=== PATIENT | male | born 1970 | race Caucasian/White ===

== ENCOUNTER 2020-09-23 14:57 | Outpatient (CLI) | payer BC, SELFPAY ==
[2020-09-23 15:15] LABS: Hemoglobin 15.4 g/dL (14.0-18.0); Mean Corpuscular Hemoglobin 31.4 pg (26-34); Mean Corpuscular Volume 89.6 fl (80-100); Mean Platelet Volume 9.7 fl (7.4-10.4); Platelet Count Result 183 k/mm3 (150-375); Red Blood Count 4.91 M/mm3 (4.6-6.20); Red Cell Distribution Width 13.1 % (11.5-14.5); White Blood Count 7.1 K/mm3 (4.5-10.0)
[2020-09-23 15:35] LABS: Alanine Aminotransferase 27 U/L (4-50); Albumin Level 4.1 g/dL (3.5-5.1); Alkaline Phosphatase 74 U/L (38-126); Anion Gap 6 mmol/L (8-16); Aspartate Amino Transferase 34 U/L (17-59); Bilirubin,Total 0.5 mg/dL (0.2-1.3); Blood Urea Nitrogen 8 mg/dL (9-20); Calcium 9.1 mg/dL (8.4-10.2); Carbon Dioxide 26 mmol/L (22-30); Chloride 108 mmol/L (98-107); Cholesterol 177 mg/dL (0-200); Estimated Glomerular Filt Rate > 60; Glucose 94 mg/dL (75-110); HDL Direct 47 mg/dL; Potassium 4.1 mmol/L (3.4-5.0); Sodium 140 mmol/L (137-145); Triglycerides 139 mg/dL (<150)
[2020-09-23 15:46] LABS: LDL Cholesterol Direct 93 mg/dL
[2020-09-23 15:59] LABS: Vitamin D 25 Hydroxy 50.7 ng/mL
[2020-09-23 17:22] LABS: Prostate Specific Antigen 0.7 ng/mL (< OR = 4.0)
[2020-09-27 15:04] LABS: Testosterone Free 69.2 pg/mL (35.0-155.0); Testosterone Total 505 ng/dL (250-1100)
== END 2020-09-23 14:58 | disposition home or self-care (01) ==
PROVIDERS: PCP Family Medicine; Visit Provider Nurse Practitioner Family
DX: I10 Essential (primary) hypertension (principal); Z13.1 Encounter for screening for diabetes mellitus; Z68.33 Body mass index [BMI] 33.0-33.9, adult; Z13.220 Encounter for screening for lipoid disorders; Z12.5 Encounter for screening for malignant neoplasm of prostate; R53.83 Other fatigue; R68.82 Decreased libido; Z13.29 Encounter for screening for other suspected endocrine disorder; E55.9 Vitamin D deficiency, unspecified
CPT/HCPCS: 36415; 80053; 80061; 82306; 84153; 84402; 84403; 84443; 85027; G0103

== ENCOUNTER 2020-11-05 10:28 | Outpatient (CLI) | payer BC, SELFPAY ==
--- NOTE | 2020-11-05 11:30 | NEURO_ITS ---
Impression: # Complains of numbness of hands. # Evolving Carpal Tunnel Syndrome, right more than left. # No ulnar neuropathy. # Normal needle/EMG exam. Nerve Conduction Studies Anti Sensory Summary Table Stim Site NR Peak (ms) P-T Amp (?V) Site1 Site2 Delta-P (ms) Dist (cm) Myron (m/s) Left Median Anti Sensory (2-3nd Digit) Wrist 3.1 25.2 Wrist 2-3nd Digit 3.1 14.0 45 Wrist 3.6 31.9 Wrist 2-3nd Digit 3.1 14.0 45 Right Median Anti Sensory (2-3nd Digit) Wrist 3.3 35.0 Wrist 2-3nd Digit 3.3 14.0 42 Wrist 3.7 27.0 Wrist 2-3nd Digit 3.3 14.0 42 Left Radial Anti Sensory (Base 1st Digit) Wrist 1.8 19.7 Wrist Base 1st Digit 1.8 0.0 Right Radial Anti Sensory (Base 1st Digit) Wrist 2.7 12.7 Wrist Base 1st Digit 2.7 0.0 Left Ulnar Anti Sensory (5th Digit) Wrist 2.7 31.5 Wrist 5th Digit 2.7 14.0 52 Right Ulnar Anti Sensory (5th Digit) Wrist 2.6 41.8 Wrist 5th Digit 2.6 14.0 54 Motor Summary Table Stim Site NR Onset (ms) O-P Amp (mV) Site1 Site2 Delta-0 (ms) Dist (cm) Myron (m/s) Left Median Motor (Abd Poll Brev) Wrist 3.4 8.1 Elbow Wrist 5.5 32.0 58 Elbow 8.9 6.0 Right Median Motor (Abd Poll Brev) Wrist 3.8 3.5 Elbow Wrist 5.1 30.0 59 Elbow 8.9 4.0 Left Ulnar Motor (Abd Dig Minimi) Wrist 2.7 7.1 A Elbow Wrist 5.3 31.0 58 A Elbow 8.0 4.8 Right Ulnar Motor (Abd Dig Minimi) Wrist 2.7 7.0 A Elbow Wrist 5.4 32.0 59 A Elbow 8.1 4.4 F Wave Studies NR F-Lat (ms) L-R F-Lat (ms) Left Median (Mrkrs) (Abd Poll Brev) 28.91 0.55 Right Median (Mrkrs) (Abd Poll Brev) 29.46 0.55 Left Ulnar (Mrkrs) (Abd Dig Min) 29.24 0.49 Right Ulnar (Mrkrs) (Abd Dig Min) 28.76 0.49 EMG Side Muscle Nerve Root Ins Act Fibs Amp Dur Recrt Comment Right 1stDorInt Ulnar C8-T1 Nml Nml Nml Nml Nml Right Ext Indicis Radial (Post Int) C7-8 Nml Nml Nml Nml Nml Right Ext Digitorum Radial (Post Int) C7-8 Nml Nml Nml Nml Nml Right BrachioRad Radial C5-6 Nml Nml Nml Nml Nml Right PronatorTeres Median C6-7 Nml Nml Nml Nml Nml Right Abd Poll Brev Median C8-T1 Nml Nml Nml Nml Nml Left 1stDorInt Ulnar C8-T1 Nml Nml Nml Nml Nml Left Ext Indicis Radial (Post Int) C7-8 Nml Nml Nml Nml Nml Left Ext Digitorum Radial (Post Int) C7-8 Nml Nml Nml Nml Nml Left BrachioRad Radial C5-6 Nml Nml Nml Nml Nml Left PronatorTeres Median C6-7 Nml Nml Nml Nml Nml Left Abd Poll Brev Median C8-T1 Nml Nml Nml Nml Nml Right ABD Dig Min Ulnar C8-T1 Nml Nml Nml Nml Nml Left ABD Dig Min Ulnar C8-T1 Nml Nml Nml Nml Nml MTDD
== END 2020-11-05 10:29 | disposition home or self-care (01) ==
LOC: ANHNEURO 10:30
PROVIDERS: PCP Family Medicine; Visit Provider Nurse Practitioner Family
DX: R20.2 Paresthesia of skin (principal); G56.03 Carpal tunnel syndrome, bilateral upper limbs
CPT/HCPCS: 95886; 95911

== ENCOUNTER → 2020-11-21 03:20 | Outpatient (CLI) | payer BC, SELFPAY ==
[2020-11-21 20:11] LABS: SARS-CoV-2 RNA PCR Negative
== END ==
PROVIDERS: PCP Family Medicine; Visit Provider Internal Medicine Gastroenterology
DX: Z01.812 Encounter for preprocedural laboratory examination (principal); Z20.822 Contact with and (suspected) exposure to COVID-19
CPT/HCPCS: C9803; U0003; U0005

== ENCOUNTER 2020-11-24 02:41 | Day surgery (SDC) | payer BC, SELFPAY ==
[2020-11-17 15:45] VITALS: BMI 32.5
[2020-11-24 06:39] VITALS: BP 132/87; PULSE 77; RESP 18; TEMP 36.2; O2SAT 98; BMI 33.5
[2020-11-24] MEDS: LACTATED RINGERS 1,000 ML 150 ML IV CONT (06:50)
--- NOTE | 2020-11-24 07:13 | WPDANESEPPF ---
Anes - Initial Pre Proc Eval Procedure: Operation Date: 11/24/20 08:00 Proposed Procedures p Screening Colonoscopy - Ousmane Dykes MD Date/Time: 11/24/20 07:13 Surgeon: Ousmane Dykes MD Pre Op Diagnosis: neoplasm screening Patient Data Age: 50 Gender: M Height: 1.83 m Weight: 112 kg Last Vital Signs Temp 36.2 C L 11/24/20 06:39 Pulse 77 11/24/20 06:39 Resp 18 11/24/20 06:39 BP 132/87 11/24/20 06:39 Pulse Ox 98 11/24/20 06:39 Allergies Allergy/AdvReac Type Severity Reaction Status Date / Time No Known Allergies Allergy Verified 11/24/20 06:38 Home Medications Medication Instructions Recorded Confirmed Type epinephrine 0.3 mg/0.3 mL 0.3 mg IM ONCE #2 each 03/20/19 11/17/20 Rx injection, auto-injector benazepril 10 mg tablet 10 mg PO DAILY #90 tablet 09/03/20 11/17/20 Rx triamcinolone acetonide 1 applic TOPICAL BID PRN 11/17/20 11/17/20 History Patient hx anesthesia problems: none Family hx anesthesia problems: none PMFSH Past Medical History Medical History (Updated 11/24/20 @ 07:15 by Stephen Carter MD) BMI 33.0-33.9,adult Hypertension DEIDRA on CPAP Psoriasis Family History Family History Father Family history of heart disease in male family member before age 55 Social History Social History Smoking status: Never smoker Alcohol intake: never Living arrangements: with family Spiritual care concerns: No Anes - Eval Final PreProcedure Day of Procedure 11/24/20 07:13 Patient weight: obese Heart: regular rate and rhythm Lungs: clear to auscultation and normal air movement Airway: Mallampati scale class II Neurological: alert and oriented Last oral intake: >/= 8 hours ASA classification: III Emergent: no Anesthetic plan: proceed Anesthesia type and monitoring: general GIVS Informed Consent: The patient's anesthetic plan and its attendant risks and benefits were discussed with the patient/family/POA. Questions were solicited and answers provided to the satisfaction of the patient/family/POA.
--- NOTE | 2020-11-24 08:00 | PM.HPGS ---
History of Present Illness History of Present Illness Consent: Risks, benefits, and alternatives have been discussed and questions answered. Patient agrees to proceed with procedure. Chief complaint: neoplasm screening Narrative: Timmy Rivera is a 50 year old male here for first screening colonoscopy Review of Systems Constitutional: Constitutional: Denies headache(s) and Denies weakness Eyes: Eyes: Denies blurry vision ENT: Reports Normal hearing present, Denies headache(s) and Denies neck pain Cardiovascular: Cardiovascular: Denies chest pain and Denies dyspnea Respiratory: Respiratory: Denies dyspnea Gastrointestinal: Gastrointestinal: Reports no additional gastrointestinal complaints Genitourinary: Genitourinary: Denies dysuria Musculoskeletal: Musculoskeletal: Denies neck pain Integumentary/Breasts: Skin/Breast: Denies dry skin Neurologic: Reports Normal hearing present, Denies headache(s) and Denies weakness Psychiatric: Psychiatric: Denies anxiety Endocrine: Endocrine: Denies change in body appearance Hematologic/Lymphatic: Hematologic/Lymphatic: Denies easy bleeding Allergic/Immunologic: Allergic/Immunologic: Denies urticaria [facility] Past Medical History Medical History (Updated 11/24/20 @ 07:15 by Stephen Carter MD) BMI 33.0-33.9,adult Hypertension DEIDRA on CPAP Psoriasis Family History Family History Father Family history of heart disease in male family member before age 55 Social History Social History Smoking status: Never smoker Alcohol intake: never Living arrangements: with family Spiritual care concerns: No Meds Home Medications and Allergies Home Medications Medication Instructions Recorded Confirmed Type epinephrine 0.3 mg/0.3 mL 0.3 mg IM ONCE #2 each 03/20/19 11/17/20 Rx injection, auto-injector benazepril 10 mg tablet 10 mg PO DAILY #90 tablet 09/03/20 11/17/20 Rx triamcinolone acetonide 1 applic TOPICAL BID PRN 11/17/20 11/17/20 History Allergies Allergy/AdvReac Type Severity Reaction Status Date / Time No Known Allergies Allergy Verified 11/24/20 06:38 Vital Signs Vital Signs - 24 hr 11/24/20 06:39 Temperature 97.2 F L Pulse Rate 77 Respiratory Rate 18 Blood Pressure 132/87 Pulse Oximetry 98 Exam Const: General: comfortable and no acute distress HENMT: General nose exam: Normal nares present Eyes: General: appearance normal, both eyes and all related structures Neck: Neck: no JVD Resp: Auscultation: clear to auscultation bilaterally Cardio: Rate: regular rate Rhythm: regular rhythm GI: Inspection: non-distended GI Palp: Yes Soft to palpation Skin: General skin exam: normal color Neuro: General: gait normal Speech: normal speech Extrem: General: normal to inspection Psych: Mental Status: mental status grossly normal Assessment and Plan Assessment and plan (1) Screening for malignant neoplasm of colon: Code(s): Z12.11 - Encounter for screening for malignant neoplasm of colon Status: Acute Assessment and Plan: colonoscopy
[2020-11-24 08:18] VITALS: BP 110/68; PULSE 77; RESP 20; O2SAT 99
[2020-11-24 08:28] VITALS: BP 116/73; PULSE 77; RESP 20; O2SAT 99
[2020-11-24 08:38] VITALS: BP 120/78; PULSE 76; RESP 20; O2SAT 99
== END 2020-11-24 08:51 | disposition home or self-care (01) ==
PROVIDERS: PCP Family Medicine; Visit Provider Internal Medicine Gastroenterology
PROC: 0DJD8ZZ Inspection of Lower Intestinal Tract, Via Natural or Artificial Opening Endoscopic (ICD-10-PCS; CPT 45378; principal; 2020-11-24 08:00)
DX: Z12.11 Encounter for screening for malignant neoplasm of colon (principal); K64.8 Other hemorrhoids; K63.5 Polyp of colon; G47.33 Obstructive sleep apnea (adult) (pediatric); L40.9 Psoriasis, unspecified; I10 Essential (primary) hypertension; E66.9 Obesity, unspecified; Z68.33 Body mass index [BMI] 33.0-33.9, adult
CPT/HCPCS: 45385; 88305; J2704; J7120

== ENCOUNTER 2021-12-03 14:57 | Outpatient (CLI) | payer BC, SELFPAY ==
[2021-12-03 15:09] LABS: Hematocrit 45.1 % (42.0-52.0); Hemoglobin 15.5 g/dL (14.0-18.0); Mean Corpuscular HGB Conc 34.4 g/dl (32-36); Mean Corpuscular Hemoglobin 31.8 pg (26-34); Mean Corpuscular Volume 92.6 fl (80-100); Mean Platelet Volume 10.2 fl (7.4-10.4); Platelet Count Result 159 k/mm3 (150-375); Red Blood Count 4.87 M/mm3 (4.6-6.20); Red Cell Distribution Width 12.8 % (11.5-14.5); White Blood Count 5.4 K/mm3 (4.5-10.0)
[2021-12-03 15:20] LABS: Alanine Aminotransferase 18 U/L (6-50); Alkaline Phosphatase 79 U/L (38-126); Anion Gap 10 mmol/L (8-16); Aspartate Amino Transferase 26 U/L (17-59); Bilirubin,Total 0.9 mg/dL (0.2-1.3); Blood Urea Nitrogen 15 mg/dL (9-20); Calcium 9.3 mg/dL (8.4-10.2); Carbon Dioxide 26 mmol/L (22-30); Chloride 102 mmol/L (98-107); Cholesterol 156 mg/dL (0-200); Estimated Glomerular Filt Rate > 60; Glucose 94 mg/dL (65-110); HDL Direct 48 mg/dL; Potassium 4.1 mmol/L (3.4-5.0); Sodium 138 mmol/L (137-145); Triglycerides 68 mg/dL (<150)
[2021-12-03 15:31] LABS: LDL Cholesterol Direct 87 mg/dL
[2021-12-03 15:51] LABS: Prostate Specific Antigen 0.5 ng/mL (< OR = 4.0)
== END 2021-12-03 14:58 | disposition home or self-care (01) ==
LOC: ANHLAB 14:59
PROVIDERS: PCP Family Medicine; Visit Provider Nurse Practitioner Family
DX: I10 Essential (primary) hypertension (principal); Z13.29 Encounter for screening for other suspected endocrine disorder; Z12.5 Encounter for screening for malignant neoplasm of prostate
CPT/HCPCS: 36415; 80053; 80061; 84153; 84443; 85027; G0103

== ENCOUNTER 2023-06-30 15:31 | Outpatient (CLI) | payer BC, SELFPAY ==
--- NOTE | ~2023-06-30 | XR_ITS ---
EXAMINATION: XR lumbar spine 2-3V DATE: 06/30/2023 15:53 INDICATION: Low back pain TECHNIQUE: Anteroposterior and lateral views of the lumbar spine, and cone-down lateral view of the l umbosacral junction were obtained. COMPARISON: None. FINDINGS: Bone alignment is normal. There is no fracture. The vertebral body heights are maintained. There is moderate loss of intervertebral disc space height at L5-S1. L1-2. Small degenerative osteoph ytes project from the anterior endplates of multiple vertebral bodies. There is moderate facet joint osteoarthritis at L5-S1. IMPRESSION: 1. Moderate lumbar spondylosis without acute findings. Reviewed, dictated and finalized at location A.
== END 2023-06-30 15:32 ==
PROVIDERS: PCP Physician Assistant; Visit Provider Physician Assistant
DX: M43.06 Spondylolysis, lumbar region (principal)
CPT/HCPCS: 72100

== ENCOUNTER 2023-07-25 14:29 | Outpatient (CLI) | payer BC, SELFPAY ==
--- NOTE | ~2023-07-25 | MR_ITS ---
EXAMINATION: MR lumbar spine wo con DATE: 07/25/2023 15:22 INDICATION: Spondylosis without myelopathy or radiculopathy. TECHNIQUE: Magnetic resonance imaging (MRI) of the lumbar spine was performed without intravenous con trast. Sequences included sagittal T2-weighted FSE, sagittal T2-weighted FS FSE, sagittal T1-weighted FSE, and axial T2-weighted FSE. COMPARISON: Lumbar spine radiographs 06/30/2023 FINDINGS: There is 10 degrees levoscoliosis of lumbar spine. There is 4 mm retrolisthesis of L2 on L3 . Vertebral body heights are normal. There is mildly decreased disc height at L1-L2 and severely decr eased disc height at L2-L3. The distal spinal cord signal intensity is normal. The conus medullaris i s at L1-L2. The following disc levels are specifically discussed: L1-L2: The disc is bulging and has an annular fissure. There is mild bilateral facet joint osteoarthr itis. There is mild bilateral neural foraminal stenosis. There is mild central canal stenosis. L2-L3: The disc is bulging and has an annular fissure. There is mild bilateral facet joint osteoarthr itis. There is mild bilateral neural foraminal stenosis. There is mild central canal stenosis. L3-L4: The disc is bulging. There is mild bilateral facet joint osteoarthritis. There is mild bilater al neural foraminal stenosis. There is mild central canal stenosis. L4-L5: The disc is bulging. There is mild bilateral facet joint osteoarthritis. There is mild bilater al neural foraminal stenosis. There is mild central canal stenosis. L5-S1: The disc is bulging. There is severe bilateral facet joint osteoarthritis. There is mild bilat eral neural foraminal stenosis. There is mild central canal stenosis. IMPRESSION: 1. Severe lumbar spondylosis. 2. Lumbar levoscoliosis. Reviewed, dictated and finalized at location E.
== END 2023-07-25 14:30 | disposition home or self-care (01) ==
LOC: ANHIMG 14:34
PROVIDERS: PCP Family Medicine; Visit Provider Nurse Practitioner Family
DX: M47.816 Spondylosis without myelopathy or radiculopathy, lumbar region (principal); M54.50 Low back pain, unspecified; R20.0 Anesthesia of skin; R20.2 Paresthesia of skin
CPT/HCPCS: 72148

== ENCOUNTER 2024-03-19 00:36 | Day surgery (SDC) | payer BC, SELFPAY ==
[2024-03-12 09:26] VITALS: BMI 30.9
--- NOTE | 2024-03-12 09:42 | SUR.PREOP ---
Addendum entered by Velma Magana RN 03/13/24 13:56: Patient instructed NPO from midnight until time of surgery. Original Note: Report to the Outpatient Waiting Room, entrance under the green pavilion located off [facility], at time 0830 on date 03/12/2024. Planned Procedure Time:0630.? Time changes happen often and if your time is changed the preop area will call you the afternoon before. - You and your visitor will be asked to self-screen and do not enter if you have any COVID symptoms. Please call surgeon if you need to reschedule. - A mask is optional within the hospital at this time. Patients may have clear liquids (water, carbonated beverages, clear teas, apple juice) until 3 hours prior to surgery with a maximum of 20 ounces. - No food from midnight until time of surgery and no smoking. This includes no chewing gum, candy or mints. Take only the following medications with a SIP of water on the morning of surgery: Tylenol, Tramadol if needed DO NOT STOP ANY OF YOUR OTHER PRESCRIPTION MEDICATIONS PRIOR TO SURGERY EXCEPT THE FOLLOWING Medications to discontinue per physician- N/A Please no make-up, nail georgian, hairspray, perfume, deodorant, or body powder the day of surgery.? No jewelry (including any body piercings) or valuables the day of surgery, leave them at home.? Please take a shower or bath the night before, or the morning of, surgery with an antibacterial soap.? Wear comfortable, loose fitting clothing.? Children are encouraged to wear pajamas. - Jewelry must be removed prior to entering the operating room.? Rings and piercings that are not removed may be cut off. - The hospital will not accept responsibility for valuables.? - Please leave all valuables, including medications, at home the day of surgery. If you are going home after surgery, a licensed local company truck driver must drive you home.? - NO public transportation without another adult if you receive anesthesia. - We recommend that an adult stay with you for 24 hours following discharge. - We also recommend that you do not drive, make important decision, drink alcoholic beverages, or take any drugs that were not prescribed by your health care provider for at least 24 hours after your discharge time. For Pediatric surgeries, we recommend two adults accompany the child home. Follow any additional instructions given to you from your surgeon. Telephone instructions given to ____patient and asked if any additional questions and then verbalized understanding. Patient advised to call surgeon office or pre surgery nurse liaison [phone] if any additional questions.
[2024-03-19] VITALS (9 sets, daily range): BP systolic 132–158; BP diastolic 74–97; PULSE 60–77; RESP 11–18; TEMP 36.4; O2SAT 96–100; BMI 31.4
--- NOTE | ~2024-03-19 | XR_ITS ---
EXAMINATION: XR fluoroscopy no charge DATE: 03/19/2024 09:56 INDICATION: Vertebrogenic low back pain. TECHNIQUE: 32 intraoperative fluoroscopic views of the lumbar spine were obtained. I was not present. Fluoroscopy exposure time was 4 minutes and 13 seconds. COMPARISON: Lumbar spine MRI 07/25/2023 FINDINGS: Lumbar spondylosis is noted. Transpedicular needles and electrodes are placed at multiple l evels. IMPRESSION: 1. Lumbar spondylosis. Reviewed, dictated and finalized at location A. RY GROWER IMPRESSION: 1. Lumbar spondylosis.
--- NOTE | 2024-03-19 05:12 | PM.HPGS ---
History of Present Illness History of Present Illness Consent: Risks, benefits, and alternatives have been discussed and questions answered. Patient agrees to proceed with procedure. Chief complaint: vertebrogenic low back pain, chronic pain Narrative: Timmy Rivera is a 54 year old male with chronic, recalcitrant and disabling bilateral axial low back pain secondary to degenerative spondylosis, disc degeneration and vertebrogenic pain syndrome secondary to Modic endplate change with failure to respond to aggressive conservative measures including PT, oral and topical analgesics, opioid and nonopioid analgesics, rest, time and activity/behavioral modification over the past 1-2 years who presents for Intracept procedure (basivertebral nerve ablation ) of the L2, L3, L4 levels under fluoroscopic guidance. Review of Systems Review of Systems: Patient denies any new infectious, allergic, cardiopulmonary, neurologic or constitutional symptoms or changes in activity tolerance or exercise capacity including new or progressive SOB/LAM, peripheral edema, productive cough, dysuria, nausea/vomiting, diarrhea, weight change, fevers/chills/night sweats, new or progressive neurologic deficit, cognitive or mood changes since last seen, except as documented in the HPI. All systems reviewed & are unremarkable except as noted in HPI and below PMFSH Past Medical History Medical History (Updated 03/19/24 @ 05:17 by Jw Berry MD) Chronic pain Pain of left thumb Carpal tunnel syndrome on both sides Psoriasis DEIDRA on CPAP Decreased libido Screening for diabetes mellitus Hypertension Lower urinary tract symptoms (LUTS) Groin swelling Surgical History Surgical History H/O gastric sleeve Family History Family History Father Family history of heart disease in male family member before age 55 Social History Social History Smoking status: Never smoker Second hand tobacco smoke exposure: No Alcohol intake: never Substance use: never Do You Feel Safe in your Home?: Yes Lack of Transportation: No Lack of Food: Never True Current Housing: I Have Housing Concerned About Future Housing: Decline to Answer Difficulty Paying Gas/Electric Bills: Decline to Answer Difficulty Paying for Meds: Decline to Answer Currently Unemployed: Decline to Answer Education: Trade/Vocational Certificate Difficulty w/ Childcare or Family Care: Decline to Answer Living arrangements: with family Occupation/Education: occupation Gender identity (if verbalized by the patient): Male Spiritual care concerns: No Agree to blood products: Yes Meds Home Medications and Allergies Home Medications ?Medication ?Instructions ?Recorded ?Confirmed ?Type epinephrine 0.3 mg/0.3 mL 0.3 mg (0.3 mL) IM ONCE #2 ea 07/12/22 03/12/24 Rx injection, auto-injector (EpiPen 2-Lucho) triamcinolone acetonide 0.5 % 1 applic topical BID PRN psoriasis 06/30/23 03/12/24 Rx topical cream #60 grams acetaminophen 650 mg 650 mg PO Q8H PRN pain #90 tabs 07/07/23 03/12/24 Rx tablet,extended release (Tylenol Arthritis Pain) tramadol 50 mg tablet 50 mg PO BID PRN pain #20 tabs 12/12/23 03/12/24 Rx loratadine-pseudoephedrine ER 10 1 tablet PO DAILY #90 tabs 03/12/24 03/12/24 Rx mg-240 mg tablet,extended [id number] (Claritin-D 24 Hour) Allergies Allergy/AdvReac Type Severity Reaction Status Date / Time No Known Allergies Allergy Verified 03/12/24 14:28 Exam Narrative: The patient's physical exam is essentially unchanged from prior examination on 2023. Specifically, patient demonstrates normal lung capacity, tidal volume and respiratory rate without wheezes, crackles, rales or rubs. Heart rate and rhythm are regular without murmurs, gallops or rubs. No JVD. Pulses 2+ globally without increasing peripheral edema. AAOx3 with no evidence of confusion, intoxication or altered mental state, NC/AT without acute distress or altered consciousness. Speech, cognition, mood, insight and judgment at baseline and within normal limits. Assessment and Plan Assessment and plan (1) Vertebrogenic low back pain: Code(s): M54.51 - Vertebrogenic low back pain Status: Acute Assessment and Plan: proceed as planned with Intracept procedure at L2, L3, L4 under fluoroscopic guidance (2) Lumbosacral spondylosis: Code(s): M47.817 - Spondylosis without myelopathy or radiculopathy, lumbosacral region Status: Acute (3) Dorsalgia: Code(s): M54.9 - Dorsalgia, unspecified Status: Acute (4) Chronic pain: Code(s): G89.29 - Other chronic pain Status: Acute
--- NOTE | 2024-03-19 05:17 | WPDHPUPDATE1 ---
History and Physical Update Update Date/Time: 03/19/24 05:17 History and Physical has been reviewed, including an updated exam of the patient. There are NO changes in the patient's condition. Risks, benefits, and alternatives have been discussed and questions answered. Patient agrees to proceed with procedure.
--- NOTE | 2024-03-19 05:18 | P.OP_ITS ---
Procedure Note - Detailed Date of Procedure 03/19/24 Pre-op Diagnosis vertebrogenic low back pain, chronic pain Post-op Diagnosis Same Procedure Performed Percutaneous transpedicular intraosseous basivertebral nerve thermal radiofrequency ablation (Intracept procedure) at the L2, L3, L4 under fluoroscopic guidance. Surgeon Jw Berry MD Spanish Tutor None. Anesthesia General (GETA] in the [prone] position with infiltration of local anesthetic. 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 They are significantly limited in their daily and/or work-related activities as a result, including sitting, standing, lifting/carrying and sleeping, with failure to respond to and/or tolerate extensive efforts at more conservative management (i.e. oral and topical analgesics including NSAIDs, acetaminophen and opioids, Physical Therapy and modalities, time/rest, interventional procedures/corticosteroid injections) for greater than 6 months prior to today's procedure establishing medical necessity for this well-studied and FDA-approved pain-relieving procedure. INFORMED CONSENT: Procedure was discussed in detail with the patient at a previous visit and at the time of surgery. During this discussion, the risks, benefits, and alternatives to the procedure, including doing nothing, were thoroughly described to the patient, who expressed explicit understanding and consent to proceed. Specific risks discussed with the patient included, but were not limited to the risk of serious local or systemic infection, skin burn/scarring, major or minor bleeding/bruising, allergic reaction to medications or materials, inadvertent lung or other organ injury, new or worsening spinal fracture, inadvertent thermal or mechanical nerve or spinal cord injury resulting in increased pain, weakness, numbness or loss of bowel or bladder control, the need for repeat or additional surgery, inadvertent dural puncture resulting in acute or chronic CSF leak and post-dural puncture headache, failure to treat pain, and risks associated with general anesthesia in the prone position including eye, dental, joint, nerve, spine or soft tissue injury/pain related to positioning, heart attack, respiratory failure, aspiration, pneumonia, DVT/PE or thrombosis, hemorrhagic or ischemic stroke, hypoxia, hypo- or hypertension, seizure, coma and . Patient understands these risks and agrees that the opportunity for benefit outweighs the potential risk of harm. Procedure specific informed consent form was read, reviewed, signed by the patient and surgeon and witnessed in the pre-operative area. All pertinent questions were asked and answered to the patient's satisfaction. Surgical site was pre-treated with chlorhexidine wipes. All materials required for the procedure were available and site and side of procedure was marked prior to procedure start. Appropriate timeout was conducted by all participants in the OR (patient's ID, procedure to be performed, procedure site and side, all ergies and appropriate medications including pre-operative antibiotics were verified) prior to incision. PROCEDURE IN DETAIL: After full informed consent and adequate IV access was obtained without difficulty; the patient was escorted to the procedural suite. ASA standard monitors were applied and utilized throughout the case. Prophylactic antibiotics were administered prior to procedure start. GETA was initiated without difficulty or event. Eyes were protected. Patient was converted to the prone position in optimal flexion using pillows under the abdomen, hips and ankles. Pressure points were padded, cervical spine and joints were placed in neutral position. Eyes, breasts and genitals were evaluated and protected as appropriate. The thoracolumbar spine to the sacrum was prepared in the usual manner using alcohol scrub followed by broad application of ChloraPrep, and allowed to dry completely for over 3 minutes. Surgical site and C-arm was sterilely draped in the typical fashion. Aseptic technique and strict fluoroscopic guidance was utilized throughout. Fluoroscope was moved into position to visualize the vertebral bodies of interest in the AP and lateral plane, obtaining true linear projections of the endplates at each level, and was rotated in the ipsilateral oblique view approximately 35 degrees from true AP to visualize the vertebrae with respective ipsilateral facet joints visualized bisecting the superior disk space at the midpoint of the vertebral body. The superolateral border of the pedicle of each level treated was identified. After adequate general anesthesia was confirmed, the skin entry point was located and infiltrated with an adequate amount of a 1:1 admixture of 0.5% preservative free bupivacaine and 2.0% preservative-free lidocaine using a 27 gauge 1.5-inch hypodermic needle after negative aspiration for blood or bodily fluid. Appropriate introducer cannula trajectory was identified in the AP, oblique and lateral views, and local anesthesia was extended to periosteum in a similar fashion at each level treated using a 3.5 inch, 22-gauge Quincke spinal needle. A stab skin decision was made with a #11 scalpel blade and an 8-gauge introducer cannula with beveled tip was then introduced through the skin, subcutaneous tissue and paraspinal muscle until contact was made with the bony surface of the pedicle at the target level. Appropriate position was confirmed in both the AP and lateral views. Using a 24- ounce surgical mallet, the trocar was advanced through the right pedicle to the posterior aspect of the vertebral body using a combination of AP and lateral views to ensure appropriate travel through the pedicle without breach of its medial wall or entry into the epidural/neuroforaminal space. Once the trocar had entered the posterior aspect of the L4 vertebral body, the trocar was removed from the cannula and the curved cannula assembly was inserted followed by replacement of the original straight stylette with the Nitinol J ? stylette without difficulty. The wingnut on the device was rotated counterclockwise to its endpoint permitting excursion of the J ? stylette. The curved cannula assembly was then advanced under intermittent fluoroscopic guidance, using the surgical mallet, in 1 to 2 mm increments with observed travel anteriorly and medially through the vertebral body in both the AP and lateral views. When necessary, the J-stylette was intermittently removed and replaced with the straight stylette during advancement to reach the basivertebral nerve target near the center point of the vertebral body. Target was reached when the tip of the stylette was noted to be a minimum of 1 cm anterior to the posterior wall and approximately 30 to 50% of the posterior to anterior diameter of the targeted vertebral body and at the midpoint of the distance between the superior and inferior endplates, with tip of the stylette crossing midline as represented by the spinous process in the carefully aligned AP projection. J- stylette was then removed and the bipolar radiofrequency probe was connected to the generator and inserted into the introducer cannula until the proximal and distal electrodes straddled the midpoint of the vertebral body. The wingnut was then rotated clockwise to retract the PEEK sleeve and expose the proximal electrode on the radiofrequency probe. The basivertebral nerve was then ablated through activation of the probe and generator. At each level treated, ablation was performed at 85 degrees centigrade for 7 minutes using [facility]'s RFG standard intraosseous ablation algorithm while simultaneously monitoring for any sign of motor or sensory nerve stimulation. While ablative lesioning was progressing to completion at the initial level, the fluoroscope was adjusted to successively visualize the target of entry at the superolateral aspect of the pedicle at each additional level treated, ( L2, L3), with each vertebral body subsequently and sequentially accessed and target nerve ablated in a similar manner modified only to accommodate for specific level, location and anatomical variation, alternating the site and side of entry to facilitate cannula placement. This was achieved in all cases without difficulty. Location of each entry point, final cannula and probe position was documented by fluoroscopy in the AP and lateral views with respective images recorded in the patient's chart. In all cases, once intraosseous access was obtained, needle tip remained intraosseous without violation of the pedicular wall, vertebral wall, neuroforamen and/or spinal canal. Once all ablations were complete, instruments were removed from the vertebral bodies without difficulty under direct visualization and fluoroscopic guidance. Pressure was held at each entry site until hemostasis was confirmed. Skin was cleaned with alcohol -soaked gauze and dried with a sterile towel. Surgical wounds were then closed with mastisol and Steri-Strips placed in a crisscrossing fashion and covered with a sterile Telfa and Tegaderm dressing. The patient was returned to the supine position and anesthesia was reversed without difficulty or event. The patient tolerated the procedure well with no evidence of complication. Patient was transported to the recovery room where they were monitored for an appropriate period of time prior to discharge. During this time, the patient demonstrated no evidence of new neurologic symptom or injury, uncontrolled pain, postsurgical or post anesthetic complication. The patient was eventually discharged with both written and verbal instructions for appropriate wound care and activity restriction and with instructions to contact the office or report directly to the emergency department if no immediate response or if after hours with any signs of urgent or emergent complication including but not limited to excessive discharge or bleeding, new focal or diffuse neurologic weakness, numbness or other sensory change in the upper or lower extremities, severe headaches, intractable nausea/vomiting, fevers, chills, night sweats, increasing pain or loss of bowel or bladder control. Patient will otherwise follow-up in person at the clinic in 7 to 10 days for wound check and reevaluation. COMPLICATIONS: None. COMMENTS: None. IV FLUIDS: On Chart. EBL: 10 ml. DRAINS: None. PACKING: None. SPECIMEN: None. Pathology None sent Complications No immediate complications Condition Stable Disposition PACU [facility] Billing Surgery - Charge Forward: Surgery Billing
[2024-03-19] MEDS: LACTATED RINGERS 1,000 ML 30 ML IV CONT (07:15)
--- NOTE | 2024-03-19 08:28 | P.PNAN_ITS ---
Anes - Initial Pre Proc Eval Procedure: Operation Date: 03/19/24 08:30 Proposed Procedures p L2, L3, L4 Intracept Procedure - Jw Berry MD Date/Time: 03/19/24 08:28 Surgeon: Jw Berry MD Pre Op Diagnosis: vertebrogenic low back pain, chronic pain Patient Data Age: 54 Gender: M Height: 1.8 m Weight: 102.2 kg Last Vital Signs Temp 36.4 C L 03/19/24 06:37 Pulse 77 03/19/24 06:37 Resp 16 03/19/24 06:37 BP 133/92 H 03/19/24 06:37 Pulse Ox 98 03/19/24 06:37 O2 Del Method Room Air 03/19/24 06:37 Allergies Allergy/AdvReac Type Severity Reaction Status Date / Time No Known Allergies Allergy Verified 03/19/24 07:33 Home Medications ?Medication ?Instructions ?Recorded ?Confirmed ?Type epinephrine 0.3 mg/0.3 mL 0.3 mg (0.3 mL) IM ONCE #2 ea 07/12/22 03/12/24 Rx injection, auto-injector (EpiPen 2-Lucho) triamcinolone acetonide 0.5 % 1 applic topical BID PRN psoriasis 06/30/23 03/12/24 Rx topical cream #60 grams acetaminophen 650 mg 650 mg PO Q8H PRN pain #90 tabs 07/07/23 03/12/24 Rx tablet,extended release (Tylenol Arthritis Pain) tramadol 50 mg tablet 50 mg PO BID PRN pain #20 tabs 12/12/23 03/12/24 Rx loratadine-pseudoephedrine ER 10 1 tablet PO DAILY #90 tabs 03/12/24 03/12/24 Rx mg-240 mg tablet,extended [id number] (Claritin-D 24 Hour) Patient hx anesthesia problems: none Family hx anesthesia problems: none Results Review: All pre-operative results and documents have been reviewed as part of the pre- operative evaluation. [facility] Past Medical History Medical History Chronic pain Pain of left thumb Carpal tunnel syndrome on both sides Psoriasis DEIDRA on CPAP Decreased libido Screening for diabetes mellitus Hypertension Lower urinary tract symptoms (LUTS) Groin swelling Surgical History Surgical History H/O gastric sleeve Family History Family History Father Family history of heart disease in male family member before age 55 Social History Social History Smoking status: Never smoker Second hand tobacco smoke exposure: No Alcohol intake: never Substance use: never Do You Feel Safe in your Home?: Yes Lack of Transportation: No Lack of Food: Never True Current Housing: I Have Housing Concerned About Future Housing: Decline to Answer Difficulty Paying Gas/Electric Bills: Decline to Answer Difficulty Paying for Meds: Decline to Answer Currently Unemployed: Decline to Answer Education: Trade/Vocational Certificate Difficulty w/ Childcare or Family Care: Decline to Answer Living arrangements: with family Occupation/Education: occupation Gender identity (if verbalized by the patient): Male Spiritual care concerns: No Agree to blood products: Yes Anes - Eval Final PreProcedure Day of Procedure 03/19/24 08:28 Patient weight: obese Heart: regular rate and rhythm Lungs: clear to auscultation Airway: Mallampati scale class II Neurological: alert and oriented Last oral intake: >/= 8 hours ASA classification: III Emergent: no Anesthetic plan: proceed Anesthesia type and monitoring: general ETT and standard monitoring Results Review: All pre-operative results and documents have been reviewed as part of the pre- operative evaluation. Informed Consent: The patient's anesthetic plan and its attendant risks and benefits were discussed with the patient/family/POA. Questions were solicited and answers prov ided to the satisfaction of the patient/family/POA.
[2024-03-19] MEDS: ceFAZolin 2 GM/D5W 50 ML 2 GM/50 ML BAG IVPB (08:32)
[2024-03-19] MEDS: LIDOCAINE 2% PF LOCAL INJ 5 ML VIAL 20 ML INFILTRATE (09:07)
[2024-03-19] MEDS: BUPIVACAINE/EPINEPHRINE 0.5% 50 ML VIAL 10 ML INFILTRATE (09:11)
[2024-03-19] MEDS: oxyCODONE HCL (*CRX) 5 MG TAB IR PO (11:07)
--- OUTSIDE RECORDS SUMMARY | 2024-03-24 09:37 | XMS_ITS | Clinical Summary ---
Author Organization [facility] Address [address] [place] [address] Care Team Providers Care Chemical Economist Name Role Phone Rupert Monique MD Primary Care Provider [phone] Allergies No known active allergies Medications benazepril (LOTENSIN) 10 mg tablet daily 01/22/2018 Active LORATADINE-D 10-240 mg per 24 hr tablet daily as needed 01/20/2018 Active ascorbic acid (VITAMIN C) 500 mg tablet,chewable Take one tablet twice daily 60 tablet/chew tab 06/19/2018 Active cyclobenzaprine (FLEXERIL) 10 mg tablet Take 10 mg by mouth 3 (three) times a day as needed for muscle spasms 02/03/2022 Active Active Problems Problem Noted Date Diagnosed Date Chondrocalcinosis of right knee 06/19/2018 Overview (06/19/2018): Added automatically from request for surgery [id number] Surgical History Surgery Date Site/Laterality Comments SHOULDER SURGERY KNEE SURGERY Right FACIAL COSMETIC SURGERY broken bone in face Medical History Medical History Date Comments Hx Other Medical Left shoulder s urgery; Comments: APO 11/09/2013 - Hypertension Sleep apnea CPAP it works f or me ; last sleep study 2010 Family History Medical History Relation Name Comments Hypertension Other Family history of Hypertension; Cancer Neg Hx Relation Name Status Comments Other Social History Tobacco Use Types Packs/Day Years Used Date Smoking Tobacco: Never Smokeless Tobacco: Never Alcohol Use Standard Drinks/Week Comments No 0 (1 standard drink = 0.6 oz pur e alcohol) Sex and Gender Information Value Date Recorded Sex Assigned at Not on file Legal Sex Male 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 Gender Identity Not on file Sexual Orientation Not on file Obstetrics History Last Filed Vital Signs Vital Sign Reading Time Taken Comments Blood Pressure 122/73 03/01/2022 8:39 AM OVEN BAKER Pulse 75 03/01/2022 8:39 AM OVEN BAKER Temperature 36.6 ??C (97.8 ??F) 06/27/2018 4:21 PM CD T Respiratory Rate 18 06/27/2018 4:21 PM CDT Oxygen Saturation 97% 06/27/2018 4:21 PM CDT Inhaled Oxygen Concentration - - Weight 99 kg (218 lb 3.2 oz) 03/01/2022 8:39 AM OVEN BAKER Height 182.9 cm (6') 03/01/2022 8:39 AM OVEN BAKER Body Mass Index 29.59 03/01/2022 8:39 AM OVEN BAKER Plan of Treatment Health Maintenance Due Date Last Done Comments Colon Cancer Screening-Colonoscopy 1970 Depression Screening 1970 Hepatitis C Screening 1970 Prostate Cancer Screening-PSA 1970 DTaP/Tdap/Td Vaccine (1 - Tdap) 1981 Hepatitis B Screening 1988 Regular Well Visit/Exam 18-64 1988 Zoster Vaccine (1 of 2) 2020 Influenza Vaccine (#1) 2023 Pneumococcal vaccine <65 Aged Out No longer eligible based on patient's age to complete this topic Insurance Apartment List OOS Care Teams Chemical Economist Relationship Specialty Start Date End Date Rupert Monique MD PCP - General Family Medicine 03/01/22
--- OUTSIDE RECORDS SUMMARY | 2024-03-24 09:37 | XMS_ITS | Encounter Summary ---
Author Organization [facility] Healthcare Address [address] [place] [address] Care Team Providers Care Hedis Nurse Name Role Phone Unavailable Primary Care Provider Unavailabl e Encounter Details Date Type Department Care Team (Late st Contact Info) Description 01/27/2010 1:44 PM CDT - 01/27/2010 11:59 PM CDT Hospital Encounter [facility] [place], [place] [id number] [facility] 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
--- OUTSIDE RECORDS SUMMARY | 2024-03-24 09:37 | XMS_ITS | Encounter Summary ---
Author Organization [facility] Healthcare Address [address] [place] [address] Care Team Providers Care Ship Fastener Name Role Phone Unavailable Primary Care Provider Unavailabl e Encounter Details Date Type Department Care Team (Late st Contact Info) Description 03/16/2017 8:32 AM CIRCULAR HEAD SAW OPERATOR - 03/16/2017 11:03 AM CIRCULAR HEAD SAW OPERATOR Emergency [facility] Emergency Department [address] [place] [address] Rolf Mireles MD [address] [facility] [address] [place] [address] Discharge Disposition: Discharge to home or self care Social History Tobacco Use Types Packs/Day Years Used Date Smoking Tobacco: Unknown Alcohol Use Standard Drinks/Week Comments No 0 (1 standard drink = 0.6 oz pur e alcohol) Sex and Gender Information Value Date Recorded Sex Assigned at Not on file Legal Sex Male 9:18 AM CIRCULAR HEAD SAW OPERATOR Gender Identity Not on file Sexual Orientation Not on file documented as of this encounter Discharge Disposition Disposition Code Departure Means Destination Discharge to home or self care documented in this encounter Plan of Treatment Not on file documented as of this encounter Procedures Procedure Name Priority Date/Time Associated Diagnosis Comments CT HEAD WO CONTRAST Routine 03/16/2017 2 :59 PM CIRCULAR HEAD SAW OPERATOR URINALYSIS AND REFLEX TO MICROSCOPIC STAT 03/16/2017 10:52 AM CIRCULAR HEAD SAW OPERATOR TROPONIN I STAT 03/16/2017 9:11 AM CIRCULAR HEAD SAW OPERATOR APTT STAT 03/16/2017 9:11 AM CIRCULAR HEAD SAW OPERATOR CBC WITHOUT DIFFERENTIAL STAT 03/16/2017 9:11 AM CIRCULAR HEAD SAW OPERATOR BASIC METABOLIC PANEL STAT 03/16/2017 9:11 AM CIRCULAR HEAD SAW OPERATOR GLUCOSE POC Routine Gen Lab 03/16/2017 8:42 AM CIRCULAR HEAD SAW OPERATOR DISCHARGE LABORATORY CUMULATIVE REPORT 03/16/2017 12:00 AM CIRCULAR HEAD SAW OPERATOR documented in this encounter Results * CT Head WO Contrast (03/16/2017 2:59 PM CIRCULAR HEAD SAW OPERATOR) Anatomical Region Laterality Modality Head and Neck N/A Computed Tomogra phy 03/16/2017 2:59 PM CIRCULAR HEAD SAW OPERATOR Narrative 03/16/2017 6:17 PM CIRCULAR HEAD SAW OPERATOR Varinder HOSKINS M.D. FINAL REPORT The radiology attending physician has personally reviewed this study, and has reviewed and/or edited this written report and agrees with it. ACC# ??Date Time ??Exam [id number] Mar 16, 2017 08:59:[id number] Head or Brain w/o cont EXAMINATION: ??Noncontrast head CT HISTORY: 47-year-old man presenting with left tongue and face numbness and a headache. TECHNIQUE: Noncontrast CT of the brain was performed with images acquired from skull base to vertex. COMPARISON: None available. FINDINGS: Topogram demonstrates no lytic lesions or fractures. There is no acute intracranial hemorrhage. Ventricles are of normal size and morphology. No mass effect or midline shift is present. The you-white matter differentiation is normal. The visualized portions of the orbits are normal. The visualized portions of the mastoids are normal. The visualized portions of the paranasal sinuses are normal. No fractures are identified. IMPRESSION: ??No acute intracranial abnormality. Electronically signed by: Nitin Alanis M.D. Requested By: HI WALTER M.D. Dictated By: ?? ALISSON ALBARADO M.D. ??on Mar 16 2017 10:41A This document has been electronically signed by: NITIN ALANIS M.D. on Mar 16 2017 12:15P [id number] HOSKINS M.D. FINAL REPORT The radiology attending physician has personally reviewed this study, and has reviewed and/or edited this written report and agrees with it. Attending: ??RYNE, ??ROLF Requesting: ??SABA, ??HI Requesting Fax: ?? Attending Fax: ?? Attending ID: ??[id number] Requesting ID: ??[id number] Report To 1 ID: ??[id number] ? Report To 1 Name: ??, ?? Report To 1 FAX: ?? NextGen Order #: ?? Procedure Note Miscellaneous, Not In File - 03/16/2017 Varinder HOSKINS M.D. FINAL REPORT The radiology attending physician has personally reviewed this study, and has reviewed and/or edited this written report and agrees with it. ACC# Date Time Exam [id number] Mar 16, 2017 08:59:[id number] Head or Brain w/o cont EXAMINATION: Noncontrast head CT HISTORY: 47-year-old man presenting with left tongue and face numbness and a headache. TECHNIQUE: Noncontrast CT of the brain was performed with images acquired from skull base to vertex. COMPARISON: None available. FINDINGS: Topogram demonstrates no lytic lesions or fractures. There is no acute intracranial hemorrhage. Ventricles are of normal size and morphology. No mass effect or midline shift is present. The you-white matter differentiation is normal. The visualized portions of the orbits are normal. The visualized portions of the mastoids are normal. The visualized portions of the paranasal sinuses are normal. No fractures are identified. IMPRESSION: No acute intracranial abnormality. Electronically signed by: Nitin Alanis M.D. Requested By: HI WALTER M.D. Dictated By: ALISSON ALBARADO M.D. on Mar 16 2017 10:41A This document has been electronically signed by: NITIN ALANIS M.D. on Mar 16 2017 12:15P [id number] HOSKINS M.D. FINAL REPORT The radiology attending physician has personally reviewed this study, and has reviewed and/or edited this written report and agrees with it. Attending: ROLF MIRELES Requesting: HI WALTER Requesting Fax: Attending Fax: Attending ID: [id number] Requesting ID: [id number] Report To 1 ID: [id number] Report To 1 Name: , Report To 1 FAX: NextGen Order #: us Hi Walter MD IMG CT PROCEDURES Final Result * Urinalysis reflex to microscopic (03/16/2017 10:52 AM CIRCULAR HEAD SAW OPERATOR) Color, ur Straw Yellow [facility] Clarity, ur Clear Clear [facility] Specific gravity, ur 1.012 1.003 - 1.030 [facility] pH, ur 5.0 5.0 - 8.0 [facility] Albumin, ur Negative Trace [facility] Glucose, ur ql Negative Negative [facility] Ketones, ur Negative Negative [facility] Bilirubin, ur Negative Negative [facility] Blood, ur Negative Negative [facility] Urobilinogen, ur < 2.0 0.0 - 1.9 mg/dL [facility] Nitrites, ur Negative Negative [facility] Leukocyte esterase, ur Negative Negative [facility] Urine 03/16/2017 10:5 2 AM CIRCULAR HEAD SAW OPERATOR 03/16/2017 10:58 AM CIRCULAR HEAD SAW OPERATOR Narrative [facility] - 03/16/2017 11:14 AM [facility] Hi Walter MD LAB URINE ORDERABLES Final Res ult [facility] One [facility] [place] [address] * Troponin I (03/16/2017 9:11 AM CIRCULAR HEAD SAW OPERATOR) Troponin I <0.03 0.00 - 0.03 ng/mL [facility] Comment: Interpretive Data Serial determinations are recommended for the diagnosis of myocardial infarction (Third Isabella Definition of Myocardial Infarction. ??J Am Taryn Cardiol 2012;60:1581-98). Current interpretive data was last revised on 13. Blood specimen (specimen) 03/16/2017 9:11 AM CIRCULAR HEAD SAW OPERATOR 03/16/2017 9:19 AM CIRCULAR HEAD SAW OPERATOR Narrative [facility] - 03/16/2017 10:02 AM CIRCULAR HEAD SAW OPERATOR us Hi Walter MD LAB BLOOD ORDERABLES Final Res ult Performing Organization Address City/[facility]/ZIP Co de Phone Number [facility] One [facility] Department [place] [address] * Basic metabolic panel (03/16/2017 9:11 AM CIRCULAR HEAD SAW OPERATOR) Sodium 141 135 - 145 mmol/L [facility] Potassium, pl 4.3 3.3 - 4.9 mmol/L [facility] Chloride 106 97 - 110 mmol/L [facility] CO2 25 22 - 32 mmol/L [facility] BUN 15 8 - 25 mg/dL [facility] Glucose 91 70 - 199 mg/dL [facility] Comment: Interpretive Data Fasting glucose >/= 126 mg/dl is diagnostic for diabetes. ?? Fasting is defined as no caloric intake for at least 8 hours. Fasting glucose between 100 mg/dl to 125 mg/dl is diagnostic of prediabetes. In a patient with classic symptoms of hyperglycemia or hyperglycemic crisis, a random glucose >/= 200 mg/dl is diagnostic for diabetes. In the absence of unequivocal hyperglycemia, results should be confirmed by repeat testing. The classification and Diagnosis of Diabetes Diabetes Care 2017;40 (Suppl. 1):S11. Current interpretive data was last revised 2017. Creatinine 0.93 0.80 - 1.30 mg/dL [facility] Calcium 9.6 8.5 - 10.3 mg/dL [facility] Anion gap 10 2 - 15 mmol/L [facility] Blood specimen (specimen) 03/16/2017 9:11 AM CIRCULAR HEAD SAW OPERATOR 03/16/2017 9:19 AM CIRCULAR HEAD SAW OPERATOR Narrative [facility] - 03/16/2017 9:57 AM CIRCULAR HEAD SAW OPERATOR Hi Walter MD LAB BLOOD ORDERABLES Final Res ult Performing Organization Address [facility]/ZIP Co de Phone Number [facility] Department [place] [address] * aPTT (03/16/2017 9:11 AM CIRCULAR HEAD SAW OPERATOR) [facility] [address] aPTT 28.9 25.0 - 37.0 sec [facility] Comment: Interpretive Data Therapeutic heparin range:60.0 - 94.0 sec based on correlation with therapeutic heparin activity range of 0.3 -0.7 Units/mL. Current interpretive data was last revised on 2011. Blood specimen (specimen) 03/16/2017 9:11 AM CIRCULAR HEAD SAW OPERATOR 03/16/2017 9:19 AM CIRCULAR HEAD SAW OPERATOR Narrative [facility] - 03/16/2017 9:38 AM CIRCULAR HEAD SAW OPERATOR us Hi Walter MD LAB BLOOD ORDERABLES Final Res ult [facility] Department [place] [address] * (ABNORMAL) CBC without differential (03/16/2017 9:11 AM CIRCULAR HEAD SAW OPERATOR) [facility] [address] WBC 7.26 3.80 - 9.90 K/cumm [facility] RBC 5.40 4.30 - 5.80 M/cumm [facility] Hgb 16.9 13.0 - 17.5 g/dL [facility] Hct 46.9 38.9 - 50.3 % [facility] MCV 86.9 81.3 - 96.4 fL [facility] MCH 31.3 27.1 - 33.3 pg [facility] MCHC 36.0(H) 32.3 - 35.7 g/dL [facility] RDW CV 13.2 11.1 - 14.9 % [facility] RDW SD 41.4 35.7 - 48.1 fL [facility] NRBC 0.0 0.0 - 0.2 % [facility] NRBC abs 0.00 0.00 - 0.01 K/cumm [facility] Plt 186 150 - 400 K/cumm [facility] MPV 10.2 9.1 - 12.3 fL [facility] Blood specimen (specimen) 03/16/2017 9:11 AM CIRCULAR HEAD SAW OPERATOR 03/16/2017 9:19 AM CIRCULAR HEAD SAW OPERATOR Narrative [facility] - 03/16/2017 9:35 AM CIRCULAR HEAD SAW OPERATOR us Hi Walter MD LAB BLOOD ORDERABLES Final Res ult Performing Organization Address City/[facility]/ZIP Co de Phone Number [facility] Department [place] [address] * Glucose POC (03/16/2017 8:42 AM CIRCULAR HEAD SAW OPERATOR) [facility] Signature Glucose, POC 96 70 - 199 mg/dL [facility] Blood specimen (specimen) 03/16/2017 8:42 AM CIRCULAR HEAD SAW OPERATOR 03/16/2017 8:42 AM CIRCULAR HEAD SAW OPERATOR Narrative [facility] - 03/16/2017 8:56 AM CIRCULAR HEAD SAW OPERATOR us Notinfile Unknown POINT OF CARE TEST ORDERABLES Final Result Performing Organization Address [facility] Co de Phone Number [facility] [place] [place] [address] * DISCHARGE LABORATORY CUMULATIVE REPORT (03/16/2017 12:00 AM CIRCULAR HEAD SAW OPERATOR) Narrative 03/16/2017 12:00 AM CIRCULAR HEAD SAW OPERATOR Ordered by an unspecified provider. us Historical Provider LAB BLOOD ORDERABLES Margarita l Result documented in this encounter Visit Diagnoses Not on filedocumented in this encounter
--- OUTSIDE RECORDS SUMMARY | 2024-03-24 09:37 | XMS_ITS | Encounter Summary ---
Author Organization [facility] Address [address] [place] [address] Care Team Providers Care Process Architect Name Role Phone Referring, Unknown MD Primary Care Provider Unav ailable Reason for Visit * Reason Onset Date Comments surgery 06/19/2018 Encounter Details Date Type Department Care Team (Late st Contact Info) Description 06/19/2018 Telephone [facility] Orthopedics and Sports Medicine [address] [facility] [address] [place] [id number] Serjio Pressley MD [address] [place] [address] [address] [place] [address] surgery Social History Tobacco Use Types Packs/Day Years Used Date Smoking Tobacco: Unknown Smokeless Tobacco: Never Alcohol Use Standard Drinks/Week Comments No 0 (1 standard drink = 0.6 oz pur e alcohol) Sex and Gender Information Value Date Recorded Sex Assigned at Not on file Legal Sex Male 9:18 AM 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
--- OUTSIDE RECORDS SUMMARY | 2024-03-24 09:37 | XMS_ITS | Encounter Summary ---
Author Organization [facility] Address [address] [address] Care Team Providers Care Deck Specialist Name Role Phone Referring, Unknown MD Primary Care Provider Unav ailable Encounter Details Date Type Department Care Team (Late st Contact Info) Description 06/19/2018 Orders Only [facility] Orthopedics and Sports Medicine [address] [place] [phone] Joon Jimenez PA [address] [facility] [address] MIRELES [address] [place] [id number] Social History Tobacco Use Types Packs/Day Years Used Date Smoking Tobacco: Unknown Smokeless Tobacco: Never Alcohol Use Standard Drinks/Week Comments No 0 (1 standard drink = 0.6 oz pur e alcohol) Sex and Gender Information Value Date Recorded Sex Assigned at Not on file Legal Sex Male 9:18 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 Gender Identity Not on file Sexual Orientation Not on file documented as of this encounter Ordered Prescriptions Prescription Sig Dispense Quantity Refills Last Filled Start Date End Date aspirin 325 mg enteric coated tablet Take 1 tablet by mouth every 12 hours until finished 30 tablet 06/19/2018 04/ 9 documented in this encounter Plan of Treatment Not on file documented as of this encounter Visit Diagnoses Not on filedocumented in this encounter Care Teams Deck Specialist Relationship Specialty Start Date End Date Referring, Unknown, PCP - General Pediatrics 04/10/18 02/28/22 documented as of this encounter
--- OUTSIDE RECORDS SUMMARY | 2024-03-24 09:37 | XMS_ITS | Encounter Summary ---
Author Organization [facility] Healthcare Address [address] [place] [address] Care Team Providers Care Branch Office Administrator Name Role Phone Referring, Unknown Primary Care Provider Unav ailable Encounter Details Date Type Department Care Team (Latest Contact Info) Description 06/27/2018 10:47 AM CDT - 06/27/2018 4:37 PM CDT Hospital Encounter [facility] Operating Room [address] [place] [address] Serjio Pressley MD [address] [place] [address] [address] [facility] [address] [place] [address] Discharge Disposition: Discharge to home or self care Social History Tobacco Use Types Packs/Day Years Used Date Smoking Tobacco: Never Smokeless Tobacco: Never Alcohol Use Standard Drinks/Week Comments No 0 (1 standard drink = 0.6 oz pur e alcohol) Sex and Gender Information Value Date Recorded Sex Assigned at Not on file 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 Gender Identity Not on file Sexual Orientation Not on file documented as of this encounter Last Filed Vital Signs Vital Sign Reading Time Taken Comments Blood Pressure 125/83 06/27/2018 4:21 PM CDT Pulse 84 06/27/2018 4:21 PM CDT Temperature 36.6 ??C (97.8 ??F) 06/27/2018 4:21 PM CD T Respiratory Rate 18 06/27/2018 4:21 PM CDT Oxygen Saturation 97% 06/27/2018 4:21 PM CDT Inhaled Oxygen Concentration - - Weight 113.2 kg (249 lb 9 oz) 06/27/2018 11:11 A M CDT Height 182.9 cm (6') 06/27/2018 11:11 AM CDT Body Mass Index 33.85 06/27/2018 11:11 AM CDT documented in this encounter Discharge Instructions * Attachments The following attachments cannot be sent through Care Everywhere. * General Anesthesia (Discharge Care) (Canadian) * Hydrocodone/Acetaminophen (By mouth) (Canadian) * Ascorbic Acid (Vitamin C) (By mouth) (Canadian) * Aspirin (By mouth) (Canadian) documented in this encounter Medications at Time of Discharge ascorbic acid (VITAMIN C) 500 mg tablet,chewable Take one tablet twice daily 60 tablet/chew tab 06/19/2018 benazepril (LOTENSIN) 10 mg tablet daily 01/22/2018 LORATADINE-D 10-240 mg per 24 hr tablet daily as needed 01/20/2018 aspirin 325 mg enteric coated tablet Take 1 tablet by mouth every 12 hours until finished 30 tablet 06/19/2018 07/10/2018 HYDROcodone-acet aminophen (NORCO) 5-325 mg per tabletIndication s:Pain Take 1tablet every 4 hours as needed for pain 13 tablet 06/19/2018 07/10/2018 documented as of this encounter Discharge Disposition Disposition Code Departure Means Destination Discharge to home or self care documented in this encounter H&P Notes * Serjio Pressley MD - 06/27/2018 12:22 PM CDT I have reviewed the H&P, examined the patient, and endorse the findings as written. Plan of Care : Based on the above findings, I consider Timmy Rivera to be an acceptable risk for : Procedure(s): Right knee arthroscopy, with menisecectomy (medial and lateral) including any meniscal shavings including debridement/shaving articular cartilage arthroscopy equipment and ezy wrap Source Note - Serjio Pressley MD - 06/16/2018 8:30 AM CDT NEW PATIENT VISIT Subjective CHIEF COMPLAINT He had concerns including Pain of the Right Knee. HISTORY OF PRESENT ILLNESS Right knee pain past 10+ years. The recently worse. Sure what. Pain is dull and. Makes it using worse pain is activity related. This steroid injection anti- inflammatories braces he was told by another orthopedic surgeon needs a functional replacement. He is here discuss surgical intervention. Vault Mechanic completed by using M*Modal Fluency Direct speaking software, therefore, cyber transport systems specialist variances may occur. Pain Assessment Pain Assessment: 0-10 Pain Score: 4 Pain Location: Knee Pain Orientation: Right Pain Descriptors: Aching, Dull Pain Frequency: Intermittent Pain Onset: Ongoing Clinical Progression: Gradually worsening Aggravating Factors: Bending, Walking, Squatting, Kneeling Result of Injury: No Work-Related Injury: No Patient's Stated Pain Goal: No pain Pain Interventions: Medication (See MAR), Cold applied, Splinting PAST MEDCIAL HISTORY He has a past medical history of OTHER MEDICAL and Hypertension. PAST SURGICAL HISTORY He has a past surgical history that includes Shoulder surgery; Knee surgery (Right); and Facial cosmetic surgery. MEDICATIONS He has a current medication list which includes the following prescription(s): benazepril, loratadine-d, and phentermine. ALLERGIES He is allergic to no known allergies. SOCIAL HISTORY He has an unknown smoking status. He has never used smokeless tobacco. He reports that he does not drink alcohol or use drugs. FAMILY HISTORY His family history includes Hypertension in an other family member. REVIEW OF SYSTEMS Review of Systems Constitutional: Negative for activity change, appetite change, chills and fever. HENT: Negative for congestion, dental problem, ear pain, hearing loss and voice change. Eyes: Negative for pain and visual disturbance. Respiratory: Negative for apnea, cough, chest tightness and shortness of breath. Cardiovascular: Negative for chest pain, palpitations and leg swelling. Gastrointestinal: Negative for blood in stool, constipation, diarrhea, nausea and vomiting. Endocrine: Negative for cold intolerance and heat intolerance. Genitourinary: Negative for difficulty urinating and hematuria. Skin: Negative for color change, rash and wound. Allergic/Immunologic: Negative for environmental allergies. Neurological: Negative for dizziness, syncope, numbness and headaches. Hematological: Negative for adenopathy. Does not bruise/bleed easily. Psychiatric/Behavioral: Negative for confusion. The patient is not nervous/anxious and is not hyperactive. Objective PHYSICAL EXAM BP 132/86 Pulse 84 Ht 182.9 cm (6') Wt 115.7 kg (255 lb) BMI 34.58 kg/m?? Right knee Inspection Erythema: absent Cellulitis: absent Swelling: mild Skin temperature: normal Alignment: neutral Gait: antalgic Palpation Tenderness: present. The tenderness is located in the lateral joint line and medial joint line. Crepitus: positive Patella grind: positive Range of motion The patient has reduced range of motion of the right knee. The patient has pain with range of motion of the right knee. Stability The patient has normal AP and ML stability of the right knee. Strength The patient has 5/5 strength thoughout right knee. Neurovascular The patient has normal sensation on the right side of their body. Special tests Patience: medial postive lateral positive Left knee The patient has normal inspection, palpation, range of motion, strength, and stabiltiy of the left knee. REVIEW OF X-RAYS/STUDIES/LABS Assessment/Plan Timmy was seen today for pain. Diagnoses and all orders for this visit: Chondrocalcinosis of right knee Procedures PLAN Risks and benefits of the surgery were discussed with the patient. These include but are not limited to bleeding infection damage to surrounding structures including ... DVT, PE, stroke, heart attack, and . Patient understands these risks and agreed to proceed with the surgery as described above. All questions and concerns were addressed with the patient prior to surgical consent being established in the office today. The patient will follow up for surgery. Recommend arthroscopic debridement chondrocalcinosis menisci medially laterally loose body removal and chondroplasty will need a knee replacement the next to 10 years. Recommend against a partial knee. ELY Mena MD documented in this encounter Miscellaneous Notes * Perioperative Nursing Note - Cammy Dixon RN - 06/27/2018 4:33 PM CDT Discharge instructions reviewed with patient,he verbalized understanding. Copy of instructions given to patient. * Op Note - Serjio Pressley MD - 06/27/2018 2:23 PM CDT Operative Report SURGEON: Serjio Pressley MD SURGICAL TEAM: Surgeon(s) and Role: * Serjio Pressley MD - Primary DATE OF SURGERY : 06/27/2018 PREOPERATIVE DIAGNOSIS: See preoperative H and P POSTOPERATIVE DIAGNOSIS: Post-op Diagnosis * Chondrocalcinosis of right knee [M11.261] Osteoarthrosis PROCEDURE: Right knee arthroscopy, with menisecectomy (medial and lateral) including any meniscal shavings including debridement/shaving articular cartilage (R) Loose body removal. Anterior osteophyte excision from tibia ANESTHESIA: General IMPLANTS: Nothing was implanted during the procedure OPERATIVE DETAILS Estimated Blood Loss: No blood loss documented. Operation in detail: Operative Note Attending Surgeon: Srejio Pressley MD Surgical Assistants: Surgeon(s) and Role: * Serjio Pressley MD - Primary Date of Surgery: 06/27/2018 Operative Findings: The patient was seen in the preop holding area where consent was reviewed and signed. The right knee was initialed. The patient was taken to the operating the transfered safely to the operative table. Once in the operative suite the patient was anesthetized by Anesthesia. Once under anesthesia, the right knee was prepped and draped sterilely. Injected portal sites with lidocaine with epi. I performed a diagnostic arthroscopy through a anterolateral portal. Upon entering the joint, I evaluated the articular cartilage and the meniscus with the following findings: Patella: chondrosis (Grade 3/4) Trochlea: chondrosis (Grade 4) debrided extensively with the shaver and biter Medial femoral condyle: chondrosis (Grade 2/3) Medial tibial plateau: chondrosis (Grade 2/3) Lateral femoral condyle: chondrosis (Grade 2) Lateral tibial plateau: chondrosis (Grade 2) Loose body: present in the Superior pouch) removed with shaver pituitary The medial meniscus was Chondrocalcinosis with intrasubstance tear this was debrided with a biter and shaver The lateral meniscus was Degenerative tear Tibial osteophyte anterior to the ACL was removed with pituitary rongeur. Shaver the red a superiorpouch to remove any additional loose bodies I then drained the arthroscopy fluid of the knee joint. The portal sites were closed with a 4.0 monocryl suture. Dry sterile dressings were applied in standard fashion. The patient was awakened transfer safely off the operating table and taken to the postanesthesia care unit in good condition. He may benefit from viscosupplementation conservative treatment in the future more than likely he will need knee replacement in the next 5 years. Estimated Blood Loss: < 50 Specimens: None Complications: None Condition on Discharge from the operating room was stable Serjio Pressley MD Date: 06/28/2018 Time: 4:17 PM Complications: None Condition on Discharge from the operating room was stable Serjio Pressley MD Date: 06/28/2018 Time: 4:16 PM * Pre-Procedure Instructions - Perla Glaser RN - 06/20/2018 3:18 PM CDT We are pleased that you and your doctor have chosen [facility] for your surgery. We hope that the following information will help make your visit a pleasant one. Surgery Date: 06/27/2018; Ambulatory Surgery will call on 06/26/18 sometime after 3:00pm with [facility] surgery times. Before your surgery: ?? Notify your doctor of ANY change in your health such as a cold, sore throat, fever, any infection or a change in the problem for which you are having your surgery. ?? Follow any instructions given to you by your doctor or surgeon. One week before surgery STOP taking: ?? All herbal supplements ?? Aspirin (not ordered by your doctor) ?? Aleve, Advil, Motrin, Ibuprofen, or other similar medications (Tylenol is okay). 24 hours before your surgery: ?? No smoking or alcoholic drinks. Night before your surgery: ?? Do not eat or drink anything after midnight. ?? Follow surgeon's instructions for anti-bacterial shower night before and morning of surgery. Day of surgery: ?? Do not swallow any water when you brush your teeth. ?? ONLY take these pills with a tiny sip of water, Benazepril. ?? Use no make-up, nail azerbaijani, lotions, oils or powders on your skin. ?? Wear comfortable clothes that will not be tight in the area of your surgery. ?? Leave all valuables and jewelry (including all body piercing jewelry) at home. ?? Please bring your a photo ID and insurance cards with you. ?? Check in at the Ambulatory Surgery Check-In. ?? If you are 17 years old or younger, a parent or guardian must come with you. After your Outpatient Surgery: ?? You must have a responsible adult to drive you home, you will not be allowed to drive or take a cab home. ?? We recommend you have someone stay with you for 24 hours after your surgery. What to bring if you are spending the night with us: ?? Bring toiletry items such as: robe, slippers, toothbrush, toothpaste, brush or comb. ?? Bring contact lens, hearing aids, glass cases and denture container if you use any of these items. ?? The hospital will provide you with a gown. Questions or concerns: ?? If you have any questions or concerns regarding your procedure, contact your surgeon as soon as possible. ?? If you have questions regarding your Pre-Admission Testing, please call us. We can be reached atthe number posted at the top of the page. documented in this encounter Plan of Treatment Not on file documented as of this encounter Procedures Procedure Name Priority Date/Time Associated Diagnosis Comments ARTHROSCOPY KNEE 06/27/2018 1:40 PM CDT Chondrocalcinosis of right knee Special Needs arthroscopy equipment and ezy wrap documented in this encounter Visit Diagnoses Diagnosis Chondrocalcinosis of right knee- Primary documented in this encounter Admitting Diagnoses Diagnosis Chondrocalcinosis of right knee documented in this encounter Administered Medications Inactive Administered Medications - up to 3 most recent administrations Medication Order MAR Action Action Date Dose Rate Site HYDROcodone-acetaminophen (NORCO) 5-325 mg per tablet 1 tablet 1 tablet, oral, Once, On Tue06/27/18 at 1615, For 1 dose, Indications: PainIndications:Pain Given 06/27/2018 3:53 PM CDT 1 tablet HYDROmorphone (DILAUDID) injection 0.4 mg 0.4 mg, intravenous, Administer over 2 Minutes, Every 10 min PRN, 1st line for pain, Starting on Tue06/27/18 at 1503, Phase I, Notify Anesthesiologist if total PACU dose reaches 2 mg and pain score 5/10 or more., Indications: PainIndications:Pain Given 06/27/2018 3:21 PM CDT 0.4 mg Lactated Ringer's (LR) infusion 30 mL/hr, intravenous, Continuous, Starting on e 06/27/18 at 1145, Pre-Op Rate/Dose Verify 06/27/2018 1:54 PM CDT 150 mL/hr New Bag 06/27/2018 11:44 AM CDT 30 mL/hr 30 mL/hr documented in this encounter Discontinued Medications Medication Sig Discontinue Reason Start Date End Da te phentermine (ADIPEX-P) 37.5 mg tablet TK 1 T PO QAM TUESDAY THRU TUESDAY Therapy completed 02/27/2018 06/20/2018 documented as of this encounter Active and Recently Administered Medications Times are shown in CDT. Scheduled Medication Order 06/25/2018 06/26/2018 06/27/2018 ceFAZolin (ANCEF) 1 gram/10 mL in sterile water (premix) 2,000 mg (COMPLETED) 2,000 mg, intravenous, at 400 mL/hr, Administer over 3 Minutes, Once, On e 06/27/18 at 1145, For 1 dose, Pre-Op, Administer within 60 minutes of incision. Use Vancomycin if allergy to Ancef or history of MRSA. Follow SCIP antibiotic protocol., Indications: Prophylaxis, Surgical 1410 (Given - Provid er: Barbi Alanis CRNA) HYDROcodone-acetaminophen (NORCO) 5-325 mg per tablet 1 tablet (COMPLETED) 1 tablet, oral, Once, On e 06/27/18 at 1615, For 1 dose, Indications: Pain 1553 (Given - Provid er: Cammy Dixon RN) Continuous Medication Order 06/25/2018 06/26/2018 06/27/2018 Lactated Ringer's (LR) infusion 30 mL/hr, intravenous, Continuous, Starting on e 06/27/18 at 1145, Pre-Op 1144 (New Bag - Prov ider: Cammy Dixon RN)1354 (Rate/Dose Verify - Provider: Barbi Alanis CRNA) Lactated Ringer's (LR) infusion 125 mL/hr, intravenous, Continuous, Starting on 06/27/18 at 1545, Phase I 1545 (Due) PRN Medication Order 06/25/2018 06/26/2018 06/27/2018 HYDROmorphone (DILAUDID) injection 0.4 mg (CANCELED) 0.4 mg, intravenous, Administer over 2 Minutes, Every 10 min PRN, 1st line for pain, Starting on Tue06/27/18 at 1503, Phase I, Notify Anesthesiologist if total PACU dose reaches 2 mg and pain score 5/10 or more., Indications: Pain 1521 (Given - Provid er: Montserrat Hernandez RN) Lactated Ringer's (LR) irrigation (CANCELED) As needed, Starting on Tue06/27/18 at 1426, Intra-Op 1426 (Given - Provid er: Serjio Pressley MD) lidocaine-EPINEPHrine (XYLOCAINE with EPI) 1 %-1:200,000 preservative free injection (CANCELED) As needed, Starting on Tue06/27/18 at 1440, Intra-Op, Indications: Administration of Local Anesthesia 1440 (Given - Provid er: Serjio Pressley MD) documented in this encounter Orders Medications Ordered That Paulino ht Not Have Been Administered Count Last Ordered Date First Ordered Date ceFAZolin (ANCEF) 1 gram/10 mL in sterile water (premix) 2,000 mg 1 06/27/2018 diphenhydrAMINE (BENADRYL) i njection 12.5 mg 1 06/27/2018 Lactated Ringer's (LR) infusion 1 9 Lactated Ringer's (LR) irrigation 1 019 lidocaine-EPINEPHrine (XYLOC DANIEL with EPI) 1 %-1:200,000 preservative free injection 1 06/27/2018 meperidine (DEMEROL) preserv ative free injection 12.5 mg 1 06/27/2018 naloxone (NARCAN) 0.4 mg/mL injection 0.04-0.4 mg 1 06/27/2018 ondansetron (ZOFRAN) 4 mg/2 mL injection - ADS Override Pull 06/27/2018 ondansetron (ZOFRAN) injection 4 mg 1 06/27 prochlorperazine (COMPAZINE) injection 10 mg 1 06/27/2018 sodium chloride 0.9% flush 0.5-20 mL 06/03 Diet Count Last Ordered Date First Orde red Date ADULT DISCHARGE DIET 1 06/27/2018 Nursing Count Last Ordered Date First Orde red Date DISCHARGE ACTIVITY 4 06/27/2018 DISCHARGE CALL PROVIDER 3 06/27/2018 DISCHARGE DRESSING 1 06/27/2018 Admission Count Last Ordered Date First Orde red Date ASSIGN PATIENT STATUS 1 06/27/2018 documented in this encounter Care Teams Branch Office Administrator Relationship Specialty Start Date End Date Referring, Unknown, MD PCP - General Pediatrics 04/10/18 02/28/22 documented as of this encounter
--- OUTSIDE RECORDS SUMMARY | 2024-03-24 09:37 | XMS_ITS | Encounter Summary ---
Author Organization [facility] Address [address] [facility] [place] [id number] Care Team Providers Care Senior Technical Writer Name Role Phone Referring, Unknown MD Primary Care Provider Unav ailable Reason for Visit * Diagnostic Imaging (Routine) - Closed Specialty Diagnoses / Procedures Referred By Teri tong Referred To Contact Diagnoses Primary osteoarthritis of right knee Procedures XR Knee Right 4+ View Leidy Carrion MD Phone: tel: fax: Referral ID Status Reason Start Date Expiration Date Visits Re quested Visits Authorized [id number] Closed 04/10/2018 10/20/2019 1 1 Encounter Details Date Type Department Care Team (Latest Contact Info) Description 04/10/2018 2:32 PM TIN RECOVERY WORKER - 04/10/2018 11:59 PM TIN RECOVERY WORKER Hospital Encounter [facility] Orthopedics and Sports Medicine [address] [place] [address] Discharge Disposition: Discharge to home or self care Social History Tobacco Use Types Packs/Day Years Used Date Smoking Tobacco: Unknown Smokeless Tobacco: Never Alcohol Use Standard Drinks/Week Comments No 0 (1 standard drink = 0.6 oz pur e alcohol) Sex and Gender Information Value Date Recorded Sex Assigned at Not on file Legal Sex Male 9:18 AM 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 WORKER Gender Identity Not on file Sexual Orientation Not on file documented as of this encounter Medications at Time of Discharge benazepril (LOTENSIN) 10 mg tablet daily 01/22/2018 LORATADINE-D 10-240 mg per 24 hr tablet daily as needed 01/20/2018 phentermine (ADIPEX-P) 37.5 mg tablet TK 1 T PO QAM TUESDAY THRU TUESDAY 0 02/27/2018 06/20/2018 documented as of this encounter Discharge Disposition Disposition Code Departure Means Destination Discharge to home or self care documented in this encounter Plan of Treatment Not on file documented as of this encounter Procedures Procedure Name Priority Date/Time Associated Diagnosis Comments XR KNEE RIGHT 4 OR MORE VIEWS Schedule Routine, Read Routine (OP Routine) 04/10/2018 2:44 PM TIN RECOVERY WORKER Primary osteoarthritis of right knee documented in this encounter Results * XR Knee Right 4+ View (04/10/2018 2:44 PM TIN RECOVERY WORKER) Anatomical Region Laterality Modality Lower Extremities, Knee [facility] Narrative 04/10/2018 3:36 PM TIN RECOVERY WORKER Upon my review of the images, negative for fracture or dislocation, moderate tricompartmental degenerative changes bilaterally with chondrocalcinosis of the medial and lateral compartments on the right. ?? Tilted patellas bilaterally. us Leidy Carrion MD IMG XR PROCEDURES Margarita l Result documented in this encounter Visit Diagnoses Not on filedocumented in this encounter Care Teams Senior Technical Writer Relationship Specialty Start Date End Date Referring, Unknown, PCP - General Pediatrics 04/10/18 02/28/22 documented as of this encounter
--- OUTSIDE RECORDS SUMMARY | 2024-03-24 09:37 | XMS_ITS | Encounter Summary ---
Author Organization [facility] Address [address] [address] Care Team Providers Care Adjuster And Inspector Name Role Phone Referring, Unknown MD Primary Care Provider Unav ailable Reason for Visit * Reason Onset Date Comments Post-op Follow-up 06/30/2018 Encounter Details Date Type Department Care Team (Late st Contact Info) Description 06/30/2018 Telephone [facility] Medical [facility] Orthopedics and Sports Medicine [address] [place] [address] Myah Motley RMA Post-op Follow-up Social History Tobacco Use Types Packs/Day Years Used Date Smoking Tobacco: Never Smokeless Tobacco: Never Alcohol Use Standard Drinks/Week Comments No 0 (1 standard drink = 0.6 oz pur e alcohol) Sex and Gender Information Value Date Recorded Sex Assigned at Not on file 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 Postop appointment scheduled. documented in this encounter Plan of Treatment Not on file documented as of this encounter Visit Diagnoses Not on filedocumented in this encounter Care Teams Adjuster And Inspector Relationship Specialty Start Date End Date Referring, Unknown, PCP - General Pediatrics 04/10/18 02/28/22 documented as of this encounter
--- OUTSIDE RECORDS SUMMARY | 2024-03-24 09:37 | XMS_ITS | Encounter Summary ---
Author Organization [facility] Medical [facility] Address [address] [facility] [address] [place] [address] Care Team Providers Care Fisher Seal Name Role Phone Referring, Unknown MD Primary Care Provider Unav ailable Reason for Visit * Diagnostic Imaging (Routine) - Closed Specialty Diagnoses / Procedures Referred By Teri tong Referred To Contact Diagnoses Primary osteoarthritis of right knee Procedures XR Pelvis 1 or 2 Views Leidy Carrion MD Phone: tel: fax: Referral ID Status Reason Start Date Expiration Date Visits Re quested Visits Authorized [id number] Closed 04/10/2018 10/20/2019 1 1 Encounter Details Date Type Department Care Team (Latest Contact Info) Description 04/10/2018 2:32 PM SALES PROMOTION DIRECTOR - 04/10/2018 11:59 PM SALES PROMOTION DIRECTOR Hospital Encounter [facility] Orthopedics and Sports Medicine [address] [place] [address] Discharge Disposition: Discharge to home or self care Social History Tobacco Use Types Packs/Day Years Used Date Smoking Tobacco: Unknown Smokeless Tobacco: Never Alcohol Use Standard Drinks/Week Comments No 0 (1 standard drink = 0.6 oz pur e alcohol) Sex and Gender Information Value Date Recorded Sex Assigned at Not on file 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 Sex Male 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 ?? Moderate degenerative changes of the right hip joint, mild degenerative changes of the left hip joint. us Leidy Carrion MD IMG XR PROCEDURES Margarita l Result documented in this encounter Visit Diagnoses Not on filedocumented in this encounter Care Teams Fisher Seal Relationship Specialty Start Date End Date Referring, Unknown, MD PCP - General Pediatrics 04/10/18 02/28/22 documented as of this encounter
--- OUTSIDE RECORDS SUMMARY | 2024-03-24 09:37 | XMS_ITS | Encounter Summary ---
Author Organization [facility] Medical [facility] Address [address] [facility] [address] [place] [address] Care Team Providers Care Hourly Caregiver Name Role Phone Referring, Unknown MD Primary Care Provider Unav ailable Encounter Details Date Type Department Care Team (Late st Contact Info) Description 06/19/[address] 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 Gender Identity Not on file Sexual Orientation Not on file documented as of this encounter Ordered Prescriptions Prescription Sig Dispense Quantity Refills Last Filled Start Date End Date ascorbic acid (VITAMIN C) 500 mg tablet,chewable Take one tablet twice daily 60 tablet/chew tab 06/19/2018 HYDROcodone-acetam inophen (NORCO) 5-325 mg per tabletIndications: Pain Take 1tablet every 4 hours as needed for pain 13 tablet 06/19/2018 07/10/2018 documented in this encounter Plan of Treatment Not on file documented as of this encounter Visit Diagnoses Not on filedocumented in this encounter Care Teams Hourly Caregiver Relationship Specialty Start Date End Date Referring, Unknown, PCP - General Pediatrics 04/10/18 02/28/22 documented as of this encounter
--- OUTSIDE RECORDS SUMMARY | 2024-03-24 09:37 | XMS_ITS | Encounter Summary ---
Author Organization [facility] Address [address] [address] Care Team Providers Care Hr Administrator Name Role Phone Referring, Unknown MD Primary Care Provider Unav ailable Encounter Details Date Type Department Care Team (Late st Contact Info) Description 06/19/2018 Telephone [facility] Orthopedics and Sports Medicine [address] [place] [address] Joon Jimenez PA [address] [place] [address] [address] Social History Tobacco Use Types Packs/Day Years Used Date Smoking Tobacco: Unknown Smokeless Tobacco: Never Alcohol Use Standard Drinks/Week Comments No 0 (1 standard drink = 0.6 oz pur e alcohol) Sex and Gender Information Value Date Recorded Sex Assigned at Not on file 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 * Telephone Encounter - Caterina Zee MA - 06/19/2018 1:50 PM CDT Dos 3-26-19 please call pt for post op appt documented in this encounter Plan of Treatment Not on file documented as of this encounter Visit Diagnoses Not on filedocumented in this encounter Care Teams Hr Administrator Relationship Specialty Start Date End Date Referring, Unknown, MD PCP - General Pediatrics 04/10/18 02/28/22 documented as of this encounter
--- OUTSIDE RECORDS SUMMARY | 2024-03-24 09:37 | XMS_ITS | Encounter Summary ---
Author Organization [facility] Healthcare Address [address] [place] [address] Care Team Providers Care Speech Clinician Name Role Phone Unavailable Primary Care Provider Unavailabl e Encounter Details Date Type Department Care Team (Latest Contact Info) Description 11/10/2016 9:23 AM CDT - 11/10/2016 11:59 PM CDT Hospital Encounter [facility] [phone] Shun Valentine MD [address] [facility] [address] [place], [place] [id number] Discharge Disposition: Discharge to home or self care Social History Tobacco Use Types Packs/Day Years Used Date Smoking Tobacco: Unknown Alcohol Use Standard Drinks/Week Comments No 0 (1 standard drink = 0.6 oz pur e alcohol) Sex and Gender Information Value Date Recorded Sex Assigned at Not on file 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 Gender Identity Not on file Sexual Orientation Not on file documented as of this encounter Discharge Disposition Disposition Code Departure Means Destination Discharge to home or self care documented in this encounter Plan of Treatment Not on file documented as of this encounter Procedures Procedure Name Priority Date/Time Associated Diagnosis Comments MEASLES IGG ANTIBODY Routine Gen Lab 11/10/2016 9:23 AM CDT RUBELLA IGG Routine Gen Lab 11/10/2016 9:23 AM CDT VARICELLA ZOSTER ANTIBODY, IGG Routine Gen Lab 11/10/2016 9:23 AM CDT MUMPS IGG ANTIBODY Routine Gen Lab 11/10/2016 9:23 AM CDT documented in this encounter Results * Mumps antibody, IgG (11/10/2016 9:23 AM CDT) Mumps IgG Positive [facility] Comment: Interpretive Data Negative: No detectable IgG antibody to mumps. Such individuals are presumed to be uninfected with the mumps and to be susceptible to primary infection. Equivocal: Presence or absence of the Mumps IgG antibody cannot be determined. Positive: Indicates presence of detectable IgG antibody to mumps. Indicative of current or previous infection or vaccination. The individual may be at risk of transmitting mumps infection, but is not necessarily currently contagious. Current interpretive data was last revised on 2016. Blood specimen (specimen) 11/10/2016 9:23 AM CDT 11/11/2016 12:04 AM CDT Shun Valentine MD LAB MICROBIOLOGY - GENERAL OR DERABLES Final Result Performing Organization Address [facility] Co de Phone Number [facility] Department [place] [address] * Rubella antibody, IgG (11/10/2016 9:23 AM CDT) Rubella IgG Positive [facility] Blood specimen (specimen) 11/10/2016 9:23 AM CDT 11/11/2016 12:04 AM CDT Shun Valentine MD LAB MICROBIOLOGY - GENERAL OR DERABLES Final Result Performing Organization Address City/[facility] Co de Phone Number [facility] Department [place] [address] * Rubeola antibody IgG (11/10/2016 9:23 AM CDT) Measles IgG Negative [facility] Blood specimen (specimen) 11/10/2016 9:23 AM CDT 11/11/2016 12:04 AM CDT Shun Valentine MD LAB MICROBIOLOGY - GENERAL OR DERABLES Final Result Performing Organization Address [facility] Co de Phone Number [facility] Department [place] [address] * Varicella zoster antibody, IgG (11/10/2016 9:23 AM CDT) VZV IgG Positive [facility] Comment: Interpretive Data Negative: ??No detectable antibody to Varicella-zoster ? virus. ??Such individuals ? are presumed to be uninfected with VZV and to ? be susceptible to primary infection. Equivocal: Presence or absence of detectable antibodies ? to VZV IgG cannot be determined and the test ? should be repeated. Positive: ??Indicated presence of detectable antibody to ? VZV. ??Indicative of current ? or previous infection or vaccination. Current interpretive data was last revised on 2016. Blood specimen (specimen) 11/10/2016 9:23 AM CDT 11/11/2016 12:04 AM CDT us Shun Valentine MD LAB MICROBIOLOGY - GENERAL OR DERABLES Final Result Performing Organization Address [facility] Co de Phone Number [facility] Department [place] [address] documented in this encounter Visit Diagnoses Not on filedocumented in this encounter
--- OUTSIDE RECORDS SUMMARY | 2024-03-24 09:37 | XMS_ITS | Encounter Summary ---
Author Organization [facility] Healthcare Address [address] [place] [address] Care Team Providers Care Employment Manager Name Role Phone Donny Eric MD Primary Care Provider + Encounter Details Date Type Department Care Team (Late st Contact Info) Description 11/27/2013 12:45 PM CDT - 11/27/2013 11:59 PM CDT Hospital Encounter [facility] Serjio Roper MD [address] [place] [address] [address] [facility] [facility] [address] [place] [address] Sprain and strain of other specified sites of shoulder and upper arm; Accident; Unspecified place of occurrence Social History Tobacco Use Types Packs/Day Years Used Date Smoking Tobacco: Never Assessed Sex and Gender Information Value Date Recorded Sex Assigned at Not on file 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 Gender Identity Not on file Sexual Orientation Not on file documented as of this encounter Plan of Treatment Not on file documented as of this encounter Procedures Procedure Name Priority Date/Time Associated Diagnosis Comments XR INJECT SHOULDER ARTHRO ONLY Routine 11/27/2013 2:27 PM CDT documented in this encounter Results * XR Inject Shoulder Arthro Only (11/27/2013 2:27 PM CDT) Anatomical Region Laterality Modality Shoulder N/A Radiographic Mily ging 11/27/2013 2:27 PM CDT Narrative 11/28/2013 10:03 PM CDT VM XR INJ SHLDR ARTH MRI/CT L [id number] ??Acc#: ??[id number] DATE OF EXAM: ??Nov 27 2013 CLINICAL HISTORY: Previous labral tear with surgical repair. ??Re-injury after returning to work; believes he overused the shoulder. 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 ??No opaque soft tissue foreign body or soft tissue calcification is seen. ??Humeral head articular surface appears smooth. Using aseptic technique and local anesthesia with 1% Lidocaine a 22 gauge spinal needle was percutaneously advanced into the left glenohumeral joint space from an anterior approach. ??Prior to intraarticular placement approximately 1/2 ml of Hexabrix had been injected over the anteromedial aspect of the humeral head. ??Once intraarticular positioning was confirmed, 12 ml of a mixture containing 1:1 dilution of Hexabrix and 1:200 dilution of OptiMARK (Gadolinium) with sterile saline was injected with periodic fluoroscopic monitoring. ??Needle was then removed. ??There was no blood loss. ??An adhesive bandage was placed over the needle entry site. ??Patient was sent by wheelchair to [facility] for subsequent left shoulder MR arthrogram. ??Patient tolerated the procedure well. There were no immediate complications. IMPRESSION: 1. FLUOROSCOPICALLY GUIDED LEFT SHOULDER INJECTION FOR MR ARTHROGRAM, DESCRIBED. 2. FLUOROSCOPY TIME FOR PROCEDURE WAS 0.5 MINUTES. Interpreting Physician: ??DR MONTSE RICE M.D. ??Read on: ??Nov 27 2013 2:27P Transcribed by: ??scott ??On: Nov 27 2013 ??5:05P Approved Electronically by: ??DWAYNE Reeder, DR WILLARD ??on: ??Nov 28 2013 10:03P Ordering DR: SERJIO CHA Attending DR: SERJIO CHA Procedure Note Provider, MD Yola - 07/26/2016 VM XR INJ SHLDR ARTH MRI/CT L [id number] Acc#: [id number] DATE OF EXAM: Nov 27 2013 CLINICAL HISTORY: Previous labral tear with surgical repair. Re-injury after returning towork; believes he overused the shoulder. 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 No opaque soft tissue foreign body or soft tissue calcificationis seen. Humeral head articular surface appears smooth. Using aseptictechnique and local anesthesia with 1% Lidocaine a 22 gauge spinal needlewas percutaneously advanced into the left glenohumeral joint space from ananterior approach. Prior to intraarticular placement approximately 1/2 mlof Hexabrix had been injected over the anteromedial aspect of the humeralhead. Once intraarticular positioning was confirmed, 12 ml of a mixturecontaining 1:1 dilution of Hexabrix and 1:200 dilution of OptiMARK(Gadolinium) with sterile saline was injected with periodic fluoroscopicmonitoring. Needle was then removed. There was no blood loss. Anadhesive bandage was placed over the needle entry site. Patient was sentby wheelchair to [facility] for subsequent left shoulder MRarthrogram. Patient tolerated the procedure well. There were no immediate complications. IMPRESSION: 1. FLUOROSCOPICALLY GUIDED LEFT SHOULDER INJECTION FOR MR ARTHROGRAM, ASDESCRIBED. 2. FLUOROSCOPY TIME FOR PROCEDURE WAS 0.5 MINUTES. Interpreting Physician: DR MONTSE RICE M.D. Read on: Nov 27 20132:27P Transcribed by: scott On: Nov 27 2013 5:05P Approved Electronically by: DWAYNE Reeder, DR WILLARD on: Nov 28 201310:03P Ordering DR: SERJIO CHA Attending DR: SERJIO CHA us Historical Provider IMLuke XR PROCEDURES Final R esult documented in this encounter Visit Diagnoses Diagnosis Sprain and strain of other specified sites of shoulder and upper arm Accident Unspecified accident Unspecified place of occurrence documented in this encounter Care Teams Employment Manager Relationship Specialty [place] [address] [address] [facility] [address] [place] [address] PCP - General 11/09/13 01/17/14 documented as of this encounter
--- OUTSIDE RECORDS SUMMARY | 2024-03-24 09:37 | XMS_ITS | Encounter Summary ---
Author Organization [facility] Medical [facility] Address [address] [facility] [address] [place] [address] Care Team Providers Care Boning Room Worker Name Role Phone Referring, Unknown MD Primary Care Provider Unav ailable Reason for Visit * Reason Onset Date Comments disability paperwork 07/04/2018 Encounter Details Date Type Department Care Team (Late st Contact Info) Description 07/04/2018 Documentation [facility] Orthopedics and Sports Medicine [address] [facility] [address] [place] [address] Ondina Singletary RT disability paperwork Social History Tobacco Use Types Packs/Day Years Used Date Smoking Tobacco: Never Smokeless Tobacco: Never Alcohol Use Standard Drinks/Week Comments No 0 (1 standard drink = 0.6 oz pur e alcohol) Sex and Gender Information Value Date Recorded Sex Assigned at Not on file 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 Left message on patients voicemail. documented in this encounter Plan of Treatment Not on file documented as of this encounter Visit Diagnoses Not on filedocumented in this encounter Care Teams Boning Room Worker Relationship Specialty Start Date End Date Referring, Unknown, PCP - General Pediatrics 04/10/18 02/28/22 documented as of this encounter
--- OUTSIDE RECORDS SUMMARY | 2024-03-24 09:37 | XMS_ITS | Encounter Summary ---
Author Organization [facility] Healthcare Address [address] [place] [address] Care Team Providers Care Map Mounter Name Role Phone Unavailable Primary Care Provider Unavailabl e Encounter Details Date Type Department Care Team (Latest Contact Info) Description 06/30/2011 4:34 PM CDT - 06/30/2011 11:59 PM CDT Hospital Encounter [facility] [place], [place] [address] [place] [address] Benign essential hypertension; Other viral disease contact; Unspecified chlamydial infection, in conditions classified elsewhere and of unspecified site; Other and unspecified hyperlipidemia Social History Tobacco Use Types Packs/Day Years Used Date Smoking Tobacco: Never Assessed Sex and Gender Information Value Date Recorded Sex Assigned at Not on file 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
--- OUTSIDE RECORDS SUMMARY | 2024-03-24 09:37 | XMS_ITS | Encounter Summary ---
Author Organization [facility] Medical Group Address [address] [address] Care Team Providers Care Personal Development Coach Name Role Phone Referring, Unknown MD Primary Care Provider Unav ailable Reason for Visit * Reason Comments Post-op Encounter Details Date Type Department Care Team (Latest Contact Info) Description 07/10/2018 3:15 PM CDT Office Visit [facility] Medical [facility] Orthopedics and Sports Medicine [address] [place] [address] Joon Jimenez PA [address] [place] [address] [facility] [address] [place] [address] Aftercare following surgery of the musculoskeletal system (Primary Dx) Social History Tobacco Use Types Packs/Day Years Used Date Smoking Tobacco: Never Smokeless Tobacco: Never Alcohol Use Standard Drinks/Week Comments No 0 (1 standard drink = 0.6 oz pur e alcohol) Sex and Gender Information Value Date Recorded Sex Assigned at Not on file 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 HISTORY OF PRESENT ILLNESS: Timmy Rivera is seen 2 weeks right knee arthroscopy. He is doing well with c/o knee swelling and a feeling of instability. PHYSICAL EXAM: Effusion: 2+ Incision: Healing well with no evidence of infection Active ROM: 0 to 120 Passive ROM: 0 to 125 Quad Set: Yes Straight Leg Raise: Yes Neurologic Exam: Neurologically Intact Vascular: Palpable, negative homans sign IMPRESSION: Status post 2 weeks Right knee arthroscopy with partial meniscectomy and patella chondroplasty. PLAN: Ice and elevate Brace was recommended for stability He declined PT at this time. He may benefit from CSI or NALLELY in the future and will RTC if needed. He will RTW full duty tomorrow. All questions were addressed today and the patient was instructed to call the office with any questions or concerns. SHERIDAN Mcdaniel documented in this encounter Plan of Treatment Not on file documented as of this encounter Visit Diagnoses Diagnosis Aftercare following surgery of the musculoskeletal system- Primary Aftercare following surgery of the musculoskeletal system, NEC documented in this encounter Discontinued Medications Medication Sig Discontinue Reason Start Date End Da te HYDROcodone-acetaminoph en (NORCO) 5-325 mg per tabletIndications:Pain Take 1tablet every 4 hours as needed for pain Therapy completed 06/19/2018 07/10/2018 aspirin 325 mg enteric coated tablet Take 1 tablet by mouth every 12 hours until finished Therapy completed 06/19/2018 07/10/2018 documented as of this encounter Care Teams Personal Development Coach Relationship Specialty Start Date End Date Referring, Unknown, PCP - General Pediatrics 04/10/18 02/28/22 documented as of this encounter
--- OUTSIDE RECORDS SUMMARY | 2024-03-24 09:37 | XMS_ITS | Encounter Summary ---
Author Organization [facility] Healthcare Address [address] [place] [address] Care Team Providers Care Neuroscience Director Na Name Role Phone Referring, Unknown MD Primary Care Provider Unav ailable Encounter Details Date Type Department Care Team (Late st Contact Info) Description 06/27/2018 1:54 PM CDT Anesthesia Event [facility] Operating Room [address] [place] [address] [place] [id number] [id number] Anesthesia Record Procedure Summary Procedure Name Responsible Anesthesiologist Anesthesia Start Time Anesthesia Stop Time Right knee arthroscopy, with menisecectomy (medial and lateral) including any meniscal shavings including debridement/shaving articular cartilage (Right: Knee) Alesha Stokes MD 06/27/18 1354 06/27/18 1504 Events Date Time Event Comment 06/27/2018 1113 1354 An Start 1354 An Start Data 1355 In Room 1359 An Induction The patient was reevaluated immediately before moderate or deep sedation use and before anesthesia induction. 1401 An Intubation 1417 Anesthesia Ready 1422 Proc Start 1423 Incision Start 1456 Proc Fin 1459 An Extubation 1459 an stop data 1501 Out of Room 1504 Handoff to RN I completed my handoff to the receiving nurse during which we: 1. Patient identified 2. Responsible provider identified 3. Pertinent medical history reviewed 4. Procedure type and surgical course discussed 5. Intraoperative anesthetic management and any significant issues discussed 6. Expectations and concerns for postop period discussed 7. Questions solicited from receiving nurse 8. Patient disposition at the time of handoff: No value filed. 1504 An Stop Meds Name Total fentaNYL 100 mcg propofol 200 mg ondansetron 4 mg dexamethasone 10 mg/mL 10 mg ceFAZolin (ANCEF) 1 gram/10 mL in steril e water (premix) 2,000 mg 2,000 mg lidocaine 2 % PF 100 mg Lactated Ringer's (LR) infusion 0 mL * Agents Name O2 Sevoflurane Inspired Sevoflurane * Blood No blood administrations on file. Lines, Drains, and Airways Type Details Placement Removal Peripheral IV Placement Date: 06/27/18; Placement Time: 1135; Catheter Size: 20 G; Orientation: Right; Location: Hand; Site Prep: Chlorhexidine; Inserted by: (blank clark RN); Insertion Attempts: 2; Patient Tolerance: Tolerated well; Removal Date: 06/27/18; Removal Time: 1630 06/27/18 1135 by Cammy Clark RN 06/27/18 1630 by Cammy Clark RN Supraglottic Airway Placement Date: 06/27/18; Placement Time: 1415 (created via procedure documentation); Mask Ventilation: 2; Size: 5; Insertion Attempts: 1; Removal Date: 06/27/18; Removal Time: 1459 06/27/18 1415 by Barbi Alanis CRNA 06/27/18 1459 by Barbi Alanis CRNA RETIRED Surgical Site 06/27/18; 1436; Right; Leg; 03/06/24 (Retired LDA, Removed/Completed by [facility] with LDA Utility); 1213 (Retired LDA, Removed/Completed by [facility] with LDA Utility) 06/27/18 1436 by Re Austin RN 03/06/24 1213 by Discharge Provider, Automatic documented in this encounter Social History Tobacco Use Types Packs/Day Years Used Date Smoking Tobacco: Never Smokeless Tobacco: Never Alcohol Use Standard Drinks/Week Comments No 0 (1 standard drink = 0.6 oz pur e alcohol) Sex and Gender Information Value Date Recorded Sex Assigned at Not on file 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 Gender Identity Not on file Sexual Orientation Not on file documented as of this encounter OR Notes * Anesthesia Postprocedure Evaluation - Barbi Alanis CRNA - 06/27/2018 3:04 PM CDT Patient: Timmy Rivera Procedure Summary Date: 06/27/18 Room / Location: [facility] OR [address] [place] [address] OPERATING ROOM Anesthesia Start: 1354 Anesthesia Stop: Procedure: Right knee arthroscopy, with menisecectomy (medial and lateral) including any meniscal shavings including debridement/shaving articular cartilage (Right Knee) Diagnosis: Chondrocalcinosis of right knee (Chondrocalcinosis of right knee [M11.261]) Provider: Serjio Pressley MD Responsible Provider: Alesha Stokes MD Anesthesia Type: general ASA Status: 2 Anesthesia Type: general Last vitals BP 129/85 Pulse 88 Temp 36.8 ??C (98.2 ??F) (Temporal) Resp 18 SpO2 98% Anesthesia Post Evaluation Patient location during evaluation: PACU Patient participation: complete - patient participated Level of consciousness: fully awake Pain score: 0 Pain management: adequate Airway patency: adequate and patent Evidence of recall: no Anesthetic complications: no Cardiovascular status: acceptable and hemodynamically stable Respiratory status: acceptable and face mask Hydration status: acceptable Pt is: normothermic Nausea/Vomiting status: none * Anesthesia Procedure Notes - Barbi Alanis CRNA - 06/27/2018 2:15 PM CDTAssociated Order(s): Airway Airway Patient location: OR Urgency: elective Indications for airway management: anesthesia Difficult airway: no Staff: Supervising provider: Alesha Stokes MD Placed by: SURGICAL TECH: Barbi Alanis CRNA Emergent airway documentation: Risks and benefits discussed: yes Consent obtained: yes Consent given by: patient Airway prep: Preoxygenated: yes Patient position: sniffing MILS maintained throughout: yes Mask difficulty assessment: 2 - vent by mask + OA or adjuvant Spontaneous ventilation during airway: absent Sedation level during airway: deep Final airway details: Final airway type: supraglottic airway Final supraglottic airway: unique SGA size: 5 Number of attempts: 1 * Anesthesia Preprocedure Evaluation - Alesha Stokes MD - 06/27/2018 11:09 AM CDT Anesthesia Evaluation Timmy Rivera is a 48 y.o. male Procedure(s): Right knee arthroscopy, with menisecectomy (medial and lateral) including any meniscal shavings including debridement/shaving articular cartilage arthroscopy equipment and ezy wrap Pre-Op Diagnosis Codes: * Chondrocalcinosis of right knee [M11.261] HISTORY Past Medical History Information obtained from: patient and chart. Cardiovascular + Hypertension Respiratory + Sleep apnea (DEIDRA) Prescribed device: CPAP. Endocrine / Other + Obesity (BMI >30) Patient Active Problem List Diagnosis ??? Chondrocalcinosis of right knee Past Medical History: Diagnosis Date ??? HX OTHER MEDICAL Left shoulder surgery; Comments: APO 11/09/2013 - ??? Hypertension ??? Sleep apnea CPAP it works for me ; last sleep study 2010 Past Surgical History: Procedure Laterality Date ??? FACIAL COSMETIC SURGERY broken bone in face ??? KNEE SURGERY Right ??? SHOULDER SURGERY No Known Allergies HOME MEDICATIONS : benazepril (LOTENSIN) 10 mg tablet ascorbic acid (VITAMIN C) 500 mg tablet,chewable aspirin 325 mg enteric coated tablet HYDROcodone-acetaminophen (NORCO) 5-325 mg per tablet LORATADINE-D 10-240 mg per 24 hr tablet Current Facility-Administered Medications: ??? ceFAZolin (ANCEF) 1 gram/10 mL in sterile water (premix) 2,000 mg, 2,000 mg, intravenous, Once ??? Lactated Ringer's (LR) infusion, 30 mL/hr, intravenous, Continuous ??? sodium chloride 0.9% flush 0.5-20 mL, 0.5-20 mL, intra-catheter, PRN Social History Tobacco Use Smoking Status Never Smoker Smokeless Tobacco Never Used Substance and Sexual Activity Alcohol Use No Substance and Sexual Activity Drug Use No Family History Problem Relation Age of Onset ??? Hypertension Other Family history of Hypertension; ??? Cancer Neg Hx PAT Physical Exam There were no vitals filed for this visit. PT: No results found for requested labs within last 720 hours. INR: No results found for requested labs within last 720 hours. APTT: No results found for requested labs within last 720 hours. Hgb A1C: No results found for requested labs within last 720 hours. CBC RBC: No results found for requested labs within last 720 hours. RDW: No results found for requested labs within last 720 hours. MCHC: No results found for requested labs within last 720 hours. MCH: No results found for requested labs within last 720 hours. MCV: No results found for requested labs within last 720 hours. Hct: No results found for requested labs within last 720 hours. Hgb: No results found for requested labs within last 720 hours. WBC: No results found for requested labs within last 720 hours. MPV: No results found for requested labs within last 720 hours. Platelets: No results found for requested labs within last 720 hours. RDW CV: No results found for requested labs within last 720 hours. RDW Sd: No results found for requested labs within last 720 hours. BMP Glucose: No results found for requested labs within last 720 hours. Calcium: No results found for requested labs within last 720 hours. Sodium: No results found for requested labs within last 720 hours. Potassium: No results found for requested labs within last 720 hours. CO2: No results found for requested labs within last 720 hours. Chloride: No results found for requested labs within last 720 hours. BUN: No results found for requested labs within last 720 hours. Creatinine: No results found for requested labs within last 720 hours. DOS Physical Exam Medical history, medications, and allergies reviewed. Attestation: This PAT evaluation 06/27/2018. Airway Exam: Mallampati: II Cervical ROM: FROM TM distance: >4 Jaw ROM: full Cardiovascular Exam: Rate: regular Rhythm: regular Pulmonary Exam: LCTA, bilat Dental Exam: Appears intact Current state: Patient's current state is cooperative. Anesthesia Plan ASA 2 My patient is approved for the Anesthesia Controlled Medication protocol when under care of a SURGICAL TECH Planned anesthesia: General Team communication plan: LMA Induction: Induction: intravenous. Postoperative Plan: Postoperative administration opioids intended. No postoperative mechanical ventilation intended. Patient's planned disposition post procedure is Outpatient. Informed Consent: Discussed plan with attending. Anesthesia plan and risks discussed with patient. Consent and Attending signature: I and/or my designee have discussed the anesthesia plan, benefits, possible alternatives, parental presence at time of induction (if indicated), and clinically relevant risks that may include dental injury, unintentional awareness, and/or other complications. The patient and/or parent/legal guardian understand, and agree to proceed. All questions answered. documented in this encounter Plan of Treatment Not on file documented as of this encounter Procedures Procedure Name Priority Date/Time Associated Diagnosis Comments MI AN ELECTIVE SUPRAGLOTTIC AIRWAY Routine 06/27/2018 2:15 PM CDT Procedure Note - Barbi Alanis CRNA - 06/27/2018 2:15 PM CDTThis note is in progress. Airway Patient location: OR Urgency: elective Indications for airway management: anesthesia Difficult airway: no Staff: Supervising provider: Alesha Stokes MD Placed by: SURGICAL TECH: Barbi Alanis CRNA Emergent airway documentation: Risks and benefits discussed: yes Consent obtained: yes Consent given by: patient Airway prep: Preoxygenated: yes Patient position: sniffing MILS maintained throughout: yes Mask difficulty assessment: 2 - vent by mask + OA or adjuvant Spontaneous ventilation during airway: absent Sedation level during airway: deep Final airway details: Final airway type: supraglottic airway Final supraglottic airway: unique SGA size: 5 Number of attempts: 1 documented in this encounter Visit Diagnoses Not on filedocumented in this encounter Administered Medications Inactive Administered Medications - up to 3 most recent administrations Medication Order MAR Action Action Date Dose Rate Site ceFAZolin (ANCEF) 1 gram/10 mL in sterile water (premix) 2,000 mg 2,000 mg, intravenous, at 400 mL/hr, Administer over 3 Minutes, Once, On 06/27/18 at 1145, For 1 dose, Pre-Op, Administer within 60 minutes of incision. Use Vancomycin if allergy to Ancef or history of MRSA. Follow SCIP antibiotic protocol., Indications: Prophylaxis, SurgicalIndications:Prophylaxis, Surgical Given 06/27/2018 2:10 PM CDT 2,000 mg dexamethasone (DECADRON) injection solution Administer over 2 Minutes, As needed, Starting on e 06/27/18 at 1406, Anesthesia Intra-op Given 06/27/2018 2:06 PM CDT 10 mg fentaNYL (SUBLIMAZE) preservative free injection intravenous, As needed, Starting on Tue06/27/18 at 1409, Anesthesia Intra-op Given 06/27/2018 2:58 PM CDT 25 mcg Given 06/27/2018 2:48 PM CDT 25 mcg Given 06/27/2018 2:09 PM CDT 50 mcg Lactated Ringer's (LR) infusion 30 mL/hr, intravenous, Continuous, Starting on Tue06/27/18 at 1145, Pre-Op Rate/Dose Verify 06/27/2018 1:54 PM CDT 150 mL/hr New Bag 06/27/2018 11:44 AM CDT 30 mL/hr 30 mL/hr lidocaine (XYLOCAINE) 20 mg/mL (2 %) preservative free injection As needed, Starting on Tue06/27/18 at 1359, Anesthesia Intra-op Given 06/27/2018 1:59 PM CDT 100 mg ondansetron (ZOFRAN) injection Administer over 2 Minutes, As needed, Starting on Tue06/27/18 at 1447, Anesthesia Intra-op Given 06/27/2018 2:47 PM CDT 4 mg propofol (DIPRIVAN) IV intravenous, As needed, Starting on Tue06/27/18 at 1359, Anesthesia Intra-op Given 06/27/2018 1:59 PM CDT 200 mg documented in this encounter Orders Medications Ordered That Paulino ht Not Have Been Administered Count Last Ordered Date First Ordered Date ondansetron (ZOFRAN) injection 1 06/27/2018 Procedures Count Last Ordered Date First Orde red Date Airway 1 06/27/2018 documented in this encounter Care Teams Neuroscience Director Na Relationship Specialty Start Date End Date Referring, Unknown, MD PCP - General Pediatrics 04/10/18 02/28/22 documented as of this encounter
--- OUTSIDE RECORDS SUMMARY | 2024-03-24 09:37 | XMS_ITS | Encounter Summary ---
Author Organization [facility] Healthcare Address [address] [place] [address] Care Team Providers Care Gis Technician Name Role Phone Donny Eric MD Primary Care Provider + Encounter Details Date Type Department Care Team (Late st Contact Info) Description 11/27/2013 12:40 PM CDT - 11/27/2013 11:59 PM CDT Hospital Encounter [facility] Serjio Roper MD [address] [place] [address] DR LEI B [facility] [address] [place] [address] Sprain and strain of other specified sites of shoulder and upper arm; Pain in joint, shoulder region; Osteoarthrosis, shoulder region; Arthrodesis status; Accident; Unspecified place of occurrence Social History Tobacco Use Types Packs/Day Years Used Date Smoking Tobacco: Never Assessed Sex and Gender Information Value Date Recorded Sex Assigned at Not on file 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 Gender Identity Not on file Sexual Orientation Not on file documented as of this encounter Plan of Treatment Not on file documented as of this encounter Procedures Procedure Name Priority Date/Time Associated Diagnosis Comments MRI UPPER EXTREMITY JOINT W CONTRAST Routine 11/27/2013 2:56 PM CDT documented in this encounter Results * MRI Upper Extremity Joint W Contrast (11/27/2013 2:56 PM CDT) Anatomical Region Laterality Modality Upper Extremities N/A Magnetic Reson ance 11/27/2013 2:56 PM CDT Narrative 11/28/2013 10:07 PM CDT MRI/ARTHROGRAM W/C SHOULDER - LEFT Acc#: ??[id number] DATE OF EXAM: ??Nov 27 2013 CLINICAL HISTORY: Surgery April 2013. ??Possible new tear. ??Recurrent pain after return to work. RESULT: Injection of Hexabrix-OptiMARK mixture was performed in the Radiology Department immediately prior to the procedure. Coronal oblique T1, fat saturation T1 and PD SPAIR; axial fat saturation T1 and sagittal oblique fat saturation T1 weighted images of the left shoulder were obtained. No rotator cuff tear is identified. ??There is no fluid or extravasation into the subacromial-subdeltoid bursa. ??Biceps tendon attachment to the superior labrum appears intact. ??There is mild irregularity along the glenoid labrum posteriorly and inferiorly with low signal foci attributed to soft tissue anchors used for previous repair. ??There is also slight irregularity at the anterior superior margin of the labrum just below the biceps tendon attachment. ??Minimal spurring at the inferomedial margin of the humeral head is noted. ??Mild degenerative change is present at the acromioclavicular joint without significant impingement upon supraspinatus muscle and tendon. ??No marrow edema is seen. ??Tiny subchondral cysts are present laterally in the humeral head. IMPRESSION: 1. CHANGES IN THE LABRUM AND SUBJACENT GLENOID ATTRIBUTED TO SOFT TISSUE ANCHORS PLACED FOR LABRAL REPAIR. 2. MILD IRREGULARITY OF LABRUM; INDETERMINATE WHETHER RESIDUAL POST SURGICAL CHANGE VS. SMALL TEAR. 3. MILD IRREGULARITY IN THE ANTERIOR SUPERIOR PORTION OF LABRUM JUST BELOW BICEPS TENDON ATTACHMENT; INDETERMINATE FOR TEAR. 4. MINIMAL HUMERAL HEAD DEGENERATIVE SPURRING. 5. MILD ACROMIOCLAVICULAR JOINT DEGENERATIVE CHANGE WITHOUT ENCROACHMENT. 6. NO IDENTIFIABLE ROTATOR CUFF TEAR. Interpreting Physician: ??DR MONTSE RICE M.D. ??Read on: ??Nov 27 2013 4:45P Transcribed by: ??troy ??On: Nov 28 2013 ??8:47A Approved Electronically by: ??DWAYNE Reeder, DR WILLARD ??on: ??Nov 28 2013 10:07P Ordering DR: SERJIO CHA Attending : SERJIO CHA Procedure Note Provider, MD Yola - 07/26/2016 MRI/ARTHROGRAM W/C SHOULDER - LEFT Acc#: [id number] DATE OF EXAM: Nov 27 2013 CLINICAL HISTORY: Surgery April 2013. Possible new tear. Recurrent pain after return towork. RESULT: Injection of Hexabrix-OptiMARK mixture was performed in the RadiologyDepartment immediately prior to the procedure. Coronal oblique T1, fatsaturation T1 and PD SPAIR; axial fat saturation T1 and sagittal obliquefat saturation T1 weighted images of the left shoulder were obtained. Norotator cuff tear is identified. There is no fluid or extravasation intothe subacromial-subdeltoid bursa. Biceps tendon attachment to thesuperior labrum appears intact. There is mild irregularity along theglenoid labrum posteriorly and inferiorly with low signal foci attributedto soft tissue anchors used for previous repair. There is also slightirregularity at the anterior superior margin of the labrum just below thebiceps tendon attachment. Minimal spurring at the inferomedial margin ofthe humeral head is noted. Mild degenerative change is present at theacromioclavicular joint without significant impingement upon supraspinatusmuscle and tendon. No marrow edema is seen. Tiny subchondral cysts are present laterally in the humeral head. IMPRESSION: 1. CHANGES IN THE LABRUM AND SUBJACENT GLENOID ATTRIBUTED TO SOFT TISSUEANCHORS PLACED FOR LABRAL REPAIR. 2. MILD IRREGULARITY OF LABRUM; INDETERMINATE WHETHER RESIDUAL POSTSURGICAL CHANGE VS. SMALL TEAR. 3. MILD IRREGULARITY IN THE ANTERIOR SUPERIOR PORTION OF LABRUM JUST BELOWBICEPS TENDON ATTACHMENT; INDETERMINATE FOR TEAR. 4. MINIMAL HUMERAL HEAD DEGENERATIVE SPURRING. 5. MILD ACROMIOCLAVICULAR JOINT DEGENERATIVE CHANGE WITHOUTENCROACHMENT. 6. NO IDENTIFIABLE ROTATOR CUFF TEAR. Interpreting Physician: DR MONTSE RICE M.D. Read on: Nov 27 20134:45P Transcribed by: troy On: Nov 28 2013 8:47A Approved Electronically by: DWAYNE Reeder, DR WILLARD on: Nov 28 201310:07P Ordering DR: SERJIO CHA Attending DR: SERJIO CHA us Historical Provider MD FARRIS MRI PROCEDURES Final Result documented in this encounter Visit Diagnoses Diagnosis Sprain and strain of other specified sites of shoulder and upper arm Pain in joint, shoulder region Osteoarthrosis, shoulder region Osteoarthrosis, unspecified whether generalized or localized, shoulder region Arthrodesis status Accident Unspecified accident Unspecified place of occurrence documented in this encounter Care Teams Gis Technician Relationship Specialty Start Date End Date [place], [place] [id number] [id number] [place] [address] PCP - General 11/09/13 01/17/14 documented as of this encounter
--- OUTSIDE RECORDS SUMMARY | 2024-03-24 09:37 | XMS_ITS | Encounter Summary ---
Author Organization [facility] Address [address] [address] Care Team Providers Care Statistical Engineer Name Role Phone Rupert Monique MD Primary Care Provider [phone] Reason for Referral * Procedure (Routine) - Closed Specialty Diagnoses / Procedures Referred By Teri tong Referred To Contact Diagnoses Rotator cuff insufficiency of left shoulder Biceps tendinitis of left upper extremity Procedures Large Joint (Hip, Knee, Shoulder) Injection: L subacromial bursa Joon Jimenez PA [address] [place] [address] [address] [place] [address] Phone: tel: fax: [facility] Referral ID Status Reason Start Date Expiration Date Visits Re quested Visits Authorized [id number] Closed 03/01/2022 03/31/2023 1 1 * Diagnostic Imaging (Routine) - Closed Specialty Diagnoses / Procedures Referred By Contlydia t Referred To Contact Diagnoses Left shoulder pain, unspecified chronicity Procedures XR Shoulder Left 2 or More Views Joon Jimenez PA [address] [place] [address] [address] [place] [address] Phone: tel: fax: [facility] Referral ID Status Reason Start Date Expiration Date Visits Re quested Visits Authorized [id number] Closed 03/01/2022 03/31/2023 1 1 Reason for Visit * Reason Comments Pain Encounter Details Date Type Department Care Team (Late st Contact Info) Description 03/01/2022 8:30 AM SLP Office Visit [facility] Orthopedic and Sports Medicine [facility] [place] [address] Joon Jiemnez PA [address] [place] [address] [address] [place] [address] Rotator cuff insufficiency of left shoulder (Primary Dx); Biceps tendinitis of left upper extremity Social History Tobacco Use Types Packs/Day Years Used Date Smoking Tobacco: Never Smokeless Tobacco: Never Alcohol Use Standard Drinks/Week Comments No 0 (1 standard drink = 0.6 oz pur e alcohol) Sex and Gender Information Value Date Recorded Sex Assigned at Not on file Legal Sex Male 9:18 AM SLP Gender Identity Not on file Sexual Orientation Not on file documented as of this encounter Last Filed Vital Signs Vital Sign Reading Time Taken Comments Blood Pressure 122/73 03/01/2022 8:39 AM SLP Pulse 75 03/01/2022 8:39 AM SLP Temperature - - Respiratory Rate - - Oxygen Saturation - - Inhaled Oxygen Concentration - - Weight 99 kg (218 lb 3.2 oz) 03/01/2022 8:39 AM SLP Height 182.9 cm (6') 03/01/2022 8:39 AM SLP Body Mass Index 29.59 03/01/2022 8:39 AM SLP documented in this encounter Progress Notes * Joon Jimenez PA - 03/01/2022 8:30 AM CSTAssociated Order(s): Large Joint (Hip, Knee, Shoulder) Injection: L subacromial bursa Post-Procedure Diagnose(s): Rotator cuff insufficiency of left shoulder; Biceps tendinitis of left upper extremity Images from the original note were not included. NEW PATIENT VISIT This patient has been reviewed and COVID-19 risk has been assessed. Based on our clinical judgement, we find it appropriate to see this patient in clinic today. Our staff performed proper precautionsand wore appropriate PPE when caring for this patient in office today. Both myself and the patient wore a mask throughout the visit. The patient understands current COVID-19 risks and wished to be seen today. Subjective CHIEF COMPLAINT He had concerns including Pain of the Left Shoulder. HISTORY OF PRESENT ILLNESS Patient a 1-year-old male here today for evaluation of left shoulder pain. He reports his shoulder pain has been present for approximately 3 months with no known injury. He describes the pain as sharp and burning, he rates it as moderate. Pushing and rotating his arm to the left increases his pain.He has a history of left shoulder arthroscopy with labral repair done in 2013. Dr. Pressley was following him after this for 2nd opinion due to continued pain. He had therapy and injection and subsequently improved however at the time they were considering a possible revision surgery with biceps tenodesis. Pain Assessment Pain Assessment: 0-10 Pain Score: 2 PAST MEDCIAL HISTORY He has a past medical history of OTHER MEDICAL, Hypertension, and Sleep apnea. He has no past medical history of Malignant hyperthermia or PONV (postoperative nausea and vomiting). PAST SURGICAL HISTORY He has a past surgical history that includes Shoulder surgery; Knee surgery (Right); and Facial cosmetic surgery. MEDICATIONS He has a current medication list which includes the following prescription(s): ascorbic acid, benazepril, cyclobenzaprine, and loratadine-d. ALLERGIES He has No Known Allergies. SOCIAL HISTORY He reports that he has never smoked. He has never used smokeless tobacco. He reports that he does not use drugs. No alcohol history on file. FAMILY HISTORY His family history includes Hypertension in an other family member. REVIEW OF SYSTEMS Review of Systems Constitutional: Negative for chills, fatigue and fever. HENT: Negative for sore throat. Respiratory: Negative for cough and shortness of breath. Cardiovascular: Negative for chest pain. Gastrointestinal: Negative for constipation, nausea and vomiting. Musculoskeletal: Positive for arthralgias. Neurological: Negative for dizziness, light-headedness and headaches. Objective PHYSICAL EXAM BP 122/73 Pulse 75 Ht 182.9 cm (6') Wt 99 kg (218 lb 3.2 oz) BMI 29.59 kg/m?? C Spine C spine exam is normal inspection, palpation, and range of motion. Right shoulder The patient has normal inspection, palpation, range of motion, strength, and stability of the rightshoulder. Left shoulder Inspection The patient has normal inspection of the left shoulder. Surgical scar/wound is present. The surgical scar/wound is healed. Palpation Tenderness is present. The patient has tenderness in the biceps tendon area(s). Range of motion The patient has normal range of motion of the left shoulder. The patient has pain with range of motion of the left shoulder. Strength Abduction: 5/5 Internal rotation: 5/5 External rotation: 4/5 Supraspinatus: 3/5 and painful Deltoid: 4/5 and painful Bicep: 5/5 and painful Neurovascular The patient has normal vascular on the left side of their body. The patient has normal sensation on the left side of their body. Tests Belly press: negative Cross am: negative Drop arm: negative Hawkin's test: postive Munira's: munira's Neer's: negative Speed's: positive REVIEW OF X-RAYS/STUDIES/LABS XR Shoulder Left 2 or More Views Four views of the left shoulder are negative for fracture dislocation or osseous lesion. Well-maintained glenohumeral joint space is noted. Mild arthritic changes are noted within the glenohumeral joint with a very minimal inferior humeral head spur. Arthritic changes are noted in the acromioclavicular joint as well. A type 1 acromion is noted Assessment/Plan Timym was seen today for pain. Diagnoses and all orders for this visit: Rotator cuff insufficiency of left shoulder - XR Shoulder Left 2 or More Views Biceps tendinitis of left upper extremity Large Joint (Hip, Knee, Shoulder) Injection: L subacromial bursa Performed by: Joon Jimenez PA Authorized by: Joon Jimenez PA Large Joint Injection/Aspiration: Consent Given by: Patient Site marked: the procedure site was marked Timeout: prior to procedure the correct patient, procedure, and site was verified Verbal consent obtained: Yes Supporting Documentation: Indications: Pain Procedure Details: Location: Shoulder Site: L subacromial bursa Prep: patient was prepped and draped in usual sterile fashion Needle Size: 22 G Approach: Posterior Medications: 2 mL lidocaine 20 mg/mL (2 %); 40 mg triamcinolone 40 mg/mL Patient tolerance: Patient tolerated the procedure well with no immediate complications PLAN Reviewed x-ray and exam findings today with the patient. We discussed the nature of his shoulder weakness related to rotator cuff pathology. At this time I have recommended a injection followed by home exercise program. Patient's daughter is an occupational therapist and he would like to work with her on home exercise program if possible. I will see him back in 6 weeks to see how he is responding. If he is not improving we will plan to order an MRI. This MRI will be with contrast given that thepatient has a history of shoulder arthroscopy. All questions were addressed today and the patient was instructed to call the office with any questions or concerns. There may be grammatical errors in this note due to use of voice recognition software. SHERIDAN Mcdaniel documented in this encounter Plan of Treatment Not on file documented as of this encounter Procedures Procedure Name Priority Date/Time Associated Diagnosis Comments XR SHOULDER LEFT 2 OR MORE VIEWS Schedule Routine, Read Routine (OP Routine) 03/01/2022 8:46 AM SLP Rotator cuff insufficiency of left shoulder NV ARTHROCENTESIS ASPIR&/INJ MAJOR JT/BURSA W/O US Routine 03/01/2022 8:30 AM SLP Rotator cuff insufficiency of left shoulder Biceps tendinitis of left upper extremity documented in this encounter Results * XR Shoulder Left 2 or More Views (03/01/2022 8:46 AM SLP) Anatomical Region Laterality Modality Upper Extremities, Shoulder Left Digi viktor Radiography Narrative 03/01/2022 8:48 AM SLP Four views of the left shoulder are negative for fracture dislocation or osseous lesion. ??Well-maintained glenohumeral joint space is noted. ??Mild arthritic changes are noted within the glenohumeral joint with a very minimal inferior humeral head spur. ??Arthritic changes are noted in the acromioclavicular joint as well. ??A type 1 acromion is noted us Joon SWARTZ IMG XR PROCEDURES Final Res ult * NV ARTHROCENTESIS ASPIR&/INJ MAJOR JT/BURSA W/O US (03/01/2022 8:30 AM SLP) Narrative Joon Jimenez PA - 03/01/2022 8:30 AM SLP Joon Jimenez PA ? 03/01/2022 ??9:08 AM Large Joint (Hip, Knee, Shoulder) Injection: L subacromial bursa Performed by: Joon Jimenez PA Authorized by: Joon Jimenez PA Large Joint Injection/Aspiration: ??Consent Given by: ??Patient ??Site marked: the procedure site was marked ?Timeout: prior to procedure the correct patient, procedure, and site was verified ?Verbal consent obtained: Yes ?? Supporting Documentation: ??Indications: ??Pain Procedure Details: ??Location: ??Shoulder ??Site: ??L subacromial bursa ??Prep: patient was prepped and draped in usual sterile fashion ?Needle Size: ??22 G ??Approach: ??Posterior ??Medications: ??2 mL lidocaine 20 mg/mL (2 %); 40 mg triamcinolone 40 mg/mL ??Patient tolerance: ??Patient tolerated the procedure well with no immediate complications Joon SWARTZ IN CLINIC/BEDSIDE ORDERABLE S Final Result documented in this encounter Visit Diagnoses Diagnosis Rotator cuff insufficiency of left shoulder- Primary Biceps tendinitis of left upper extremity documented in this encounter Administered Medications Inactive Administered Medications - up to 3 most recent administrations Medication Order MAR Action Action Date Dose Rate Site lidocaine (XYLOCAINE) 20 mg/mL (2 %) injection 2 mL 2 mL, One-Time Injection, Starting on Tue03/01/22 at 0907, For 1 dose, Indications: Administration of Local AnesthesiaIndications:Adminis tration of Local Anesthesia Given 03/01/2022 9:07 AM SLP 2 mL Left Shoulder triamcinolone (KENALOG) 40 mg/mL injection 40 mg 40 mg, intra-articular, One-Time Injection, Starting on Tue03/01/22 at 0907, For 1 doseIndications:Rotator cuff insufficiency of left shoulder,Biceps tendinitis of left upper extremity Given 03/01/2022 9:07 AM SLP 40 mg Left Shoulder documented in this encounter Historical Medications * This list may reflect changes made after this encounter. cyclobenzaprine (FLEXERIL) 10 mg tablet Take 10 mg by mouth 3 (three) times a day as needed for muscle spasms 02/03/2022 added in this encounter Care Teams Statistical Engineer Relationship Specialty Start Date End Date Rupert Monique MD PCP - General Family Medicine 03/01/22 documented as of this encounter
--- OUTSIDE RECORDS SUMMARY | 2024-03-24 09:37 | XMS_ITS | Encounter Summary ---
Author Organization [facility] Address [address] [address] Care Team Providers Care Vegetable Loader Name Role Phone Rupert Monique MD Primary Care Provider [phone] Reason for Visit * Diagnostic Imaging (Routine) - Closed Specialty Diagnoses / Procedures Referred By Contac t Referred To Contact Diagnoses Left shoulder pain, unspecified chronicity Procedures XR Shoulder Left 2 or More Views Joon Jimenez PA [address] [place] [address] [address] Phone: tel: fax: [facility] Referral ID Status Reason Start Date Expiration Date Visits Re quested Visits Authorized [id number] Closed 03/01/2022 03/31/2023 1 1 Encounter Details Date Type Department Care Team (Late st Contact Info) Description 03/01/2022 8:35 AM HEALTH CARE RECRUITER Ancillary Procedure [facility] Imaging at [address] [address] Social History Tobacco Use Types Packs/Day Years Used Date Smoking Tobacco: Never Smokeless Tobacco: Never Alcohol Use Standard Drinks/Week Comments No 0 (1 standard drink = 0.6 oz pur e alcohol) Sex and Gender Information Value Date Recorded Sex Assigned at Not on file Legal Sex Male 9:18 AM HEALTH CARE RECRUITER Gender Identity Not on file Sexual Orientation Not on file documented as of this encounter Plan of Treatment Not on file documented as of this encounter Procedures Procedure Name Priority Date/Time Associated Diagnosis Comments XR SHOULDER LEFT 2 OR MORE VIEWS Schedule Routine, Read Routine (OP Routine) 03/01/2022 8:46 AM HEALTH CARE RECRUITER Rotator cuff insufficiency of left shoulder documented in this encounter Results * XR Shoulder Left 2 or More Views (03/01/2022 8:46 AM HEALTH CARE RECRUITER) Anatomical Region Laterality Modality Upper Extremities, Shoulder Left Digi viktor Radiography Narrative 03/01/2022 8:48 AM HEALTH CARE RECRUITER Four views of the left shoulder are negative for fracture dislocation or osseous lesion. ??Well-maintained glenohumeral joint space is noted. ??Mild arthritic changes are noted within the glenohumeral joint with a very minimal inferior humeral head spur. ??Arthritic changes are noted in the acromioclavicular joint as well. ??A type 1 acromion is noted Joon SWARTZ IMG XR PROCEDURES Final Res ult documented in this encounter Visit Diagnoses Not on filedocumented in this encounter Care Teams Vegetable Loader Relationship Specialty Start Date End Date Rupert Monique MD PCP - General Family Medicine 03/01/22 documented as of this encounter
--- OUTSIDE RECORDS SUMMARY | 2024-03-24 09:37 | XMS_ITS | Encounter Summary ---
Author Organization [facility] Address [address] [place] [address] Care Team Providers Care Drafter Directional Survey Name Role Phone Unavailable Primary Care Provider Unavailabl e Encounter Details Date Type Department Care Team (Late st Contact Info) Description 01/29/2010 2:07 PM CDT - 01/29/2010 11:59 PM CDT Hospital Encounter [facility] [place], [place] [address] [facility] [place] [address] Obstructive sleep apnea Social History Tobacco Use Types Packs/Day Years Used Date Smoking Tobacco: Never Assessed Sex and Gender Information Value Date Recorded Sex Assigned at Not on file Legal Sex Male 9:18 AM FIELD SERVICE ENGINEER Gender Identity Not on file Sexual Orientation Not on file documented as of this encounter Plan of Treatment Not on file documented as of this encounter Visit Diagnoses Diagnosis Obstructive sleep apnea Obstructive sleep apnea (adult) (pediatric) documented in this encounter
--- OUTSIDE RECORDS SUMMARY | 2024-03-24 09:37 | XMS_ITS | Referral Summary ---
Author Organization [facility] Address [address] [place] [address] Care Team Providers Care Cyberathlete Name Role Phone Rupert Monique MD Primary Care Provider [phone] Allergies No known active allergies Medications benazepril [...] (06/19/2018): Added automatically from request for surgery [id number] Social History Tobacco Use Types Packs/Day Years Used Date Smoking Tobacco: Never Smokeless Tobacco: Never Alcohol Use Standard Drinks/Week Comments No 0 (1 standard drink = 0.6 oz pur e alcohol) Sex and Gender Information Value Date Recorded Sex Assigned at Not on file Legal Sex Male 9:18 AM SUPERVISOR MACHINING Gender Identity Not on file Sexual Orientation Not on file Last Filed Vital Signs Vital Sign Reading Time Taken Comments Blood Pressure 122/73 03/01/2022 8:39 AM SUPERVISOR MACHINING Pulse 75 03/01/2022 8:39 AM SUPERVISOR MACHINING Temperature 36.6 ??C (97.8 ??F) 06/27/2018 4:21 PM CD T Respiratory Rate 18 06/27/2018 4:21 PM CDT Oxygen Saturation 97% 06/27/2018 4:21 PM CDT Inhaled Oxygen Concentration - - Weight 99 kg (218 lb 3.2 oz) 03/01/2022 8:39 AM SUPERVISOR MACHINING Height 182.9 cm (6') 03/01/2022 8:39 AM SUPERVISOR MACHINING Body Mass Index 29.59 03/01/2022 8:39 AM SUPERVISOR MACHINING Plan of Treatment Not on file Insurance [employer] [facility] Address: [facility] [id number] [place] [address] Care Teams Cyberathlete Relationship Specialty Start Date End Date Rupert Monique MD PCP - General Family Medicine 03/01/22
--- OUTSIDE RECORDS SUMMARY | 2024-03-24 09:37 | XMS_ITS | Encounter Summary ---
Author Organization [facility] Address [address] [address] Care Team Providers Care Hazardous Waste Remover Name Role Phone Referring, Unknown MD Primary Care Provider Unav ailable Reason for Visit * Reason Comments Pain Encounter Details Date Type Department Care Team (Latest Contact Info) Description 06/16/2018 8:30 AM CDT Office Visit [facility] Orthopedics and Sports Medicine [address] [place] [address] Serjio Pressley MD [address] [place] [address] [address] Chondrocalcinosis of right knee (Primary Dx) Social History Tobacco Use Types Packs/Day Years Used Date Smoking Tobacco: Unknown Smokeless Tobacco: Never Alcohol Use Standard Drinks/Week Comments No 0 (1 standard drink = 0.6 oz pur e alcohol) Sex and Gender Information Value Date Recorded Sex Assigned at Not on file Legal Sex Male 9:18 AM APPRAISAL ANALYST Gender Identity Not on file Sexual Orientation Not on file documented as of this encounter Last Filed Vital Signs Vital Sign Reading Time Taken Comments Blood Pressure 132/86 06/16/2018 8:40 AM CDT Pulse 84 06/16/2018 8:40 AM CDT Temperature - - Respiratory Rate - - Oxygen Saturation - - Inhaled Oxygen Concentration - - Weight 115.7 kg (255 lb) 06/16/2018 8:40 AM CDT Height 182.9 cm (6') 06/16/2018 8:40 AM CDT Body Mass Index 34.58 06/16/2018 8:40 AM CDT documented in this encounter Progress Notes * Serjio Pressley MD - 06/16/2018 8:30 AM CDT Images from the original note were not included. NEW PATIENT VISIT Subjective CHIEF COMPLAINT He [...] replacement. He is here discuss surgical intervention. Farm Adviser completed by using M*Modal Fluency Direct speaking software, therefore, restaurant host/hostess variances may occur. Pain Assessment Pain Assessment: [...] ELY Mena MD documented in this encounter Plan of Treatment Not on file documented as of this encounter Visit Diagnoses Diagnosis Chondrocalcinosis of right knee- Primary documented in this encounter Care Teams Hazardous Waste Remover Relationship Specialty Start Date End Date Referring, Unknown, PCP - General Pediatrics 04/10/18 02/28/22 documented as of this encounter
--- OUTSIDE RECORDS SUMMARY | 2024-03-24 09:37 | XMS_ITS | Encounter Summary ---
Author Organization [facility] Care Team Providers Care Inventory Control Specialist Name Role Phone Referring, Unknown MD Primary Care Provider Unav ailable Encounter Details Date Type Department Care Team (Latest Contact Info) Description 07/10/2018 Travel Social History Tobacco Use Types Packs/Day Years Used Date Smoking Tobacco: Never Smokeless Tobacco: Never Alcohol Use Standard Drinks/Week Comments No 0 (1 standard drink = 0.6 oz pur e alcohol) Sex and Gender Information Value Date Recorded Sex Assigned at Not on file Legal Sex Male 9:18 AM CAR INSTALLATIONS SUPERVISOR Gender Identity Not on file Sexual Orientation Not on file documented as of this encounter Plan of Treatment Not on file documented as of this encounter Visit Diagnoses Not on filedocumented in this encounter Care Teams Inventory Control Specialist Relationship Specialty Start Date End Date Referring, Unknown, PCP - General Pediatrics 04/10/18 02/28/22 documented as of this encounter
--- OUTSIDE RECORDS SUMMARY | 2024-03-24 09:37 | XMS_ITS | Encounter Summary ---
Author Organization [facility] Address [address] [address] Care Team Providers Care Net Architect Name Role Phone Referring, Unknown MD Primary Care Provider Unav ailable Reason for Referral * Injectables (Routine) - Closed Specialty Diagnoses / Procedures Referred By Contac t Referred To Contact Diagnoses Primary osteoarthritis of right knee Procedures Large Joint Arthrocentesis Jesus Garcia MD Phone: tel: fax: Referral ID Status Reason Start Date Expiration Date Visits Re quested Visits Authorized [id number] Closed 04/10/2018 10/20/2019 1 1 RUPTCY LEGAL ASSISTANT * Diagnostic Imaging (Routine) - Closed Specialty Diagnoses / Procedures Referred By Contac t Referred To Contact Diagnoses Primary osteoarthritis of right knee Procedures XR Pelvis 1 or 2 Views Jesus Garcia MD Phone: tel: fax: Referral ID Status Reason Start Date Expiration Date Visits Re quested Visits Authorized [id number] Closed 04/10/2018 10/20/2019 1 1 RUPTCY LEGAL ASSISTANT * Diagnostic Imaging (Routine) - Closed Specialty Diagnoses / Procedures Referred By Contac t Referred To Contact Diagnoses Primary osteoarthritis of right knee Procedures XR Knee Right 4+ View Jesus Garcia MD Phone: tel: fax: Referral ID Status Reason Start Date Expiration Date Visits Re quested Visits Authorized [id number] Closed 04/10/2018 10/20/2019 1 1 RUPTCY LEGAL ASSISTANT Reason for Visit * Reason Comments Pain Encounter Details Date Type Department Care Team (Latest Contact Info) Description 04/10/2018 2:45 PM BANKRUPTCY LEGAL ASSISTANT Office Visit [facility] Orthopedics and Sports Medicine [address] [place] [phone] Jesus Garcia MD [address] [place] [address] Primary osteoarthritis of right knee (Primary Dx); Chondrocalcinosis of right knee Social History Tobacco Use Types Packs/Day Years Used Date Smoking Tobacco: Unknown Smokeless Tobacco: Never Alcohol Use Standard Drinks/Week Comments No 0 (1 standard drink = 0.6 oz pur e alcohol) Sex and Gender Information Value Date Recorded Sex Assigned at Not on file Legal Sex Male 9:18 AM BANKRUPTCY LEGAL ASSISTANT Gender Identity Not on file Sexual Orientation Not on file documented as of this encounter Last Filed Vital Signs Vital Sign Reading Time Taken Comments Blood Pressure 137/92 04/10/2018 2:45 PM BANKRUPTCY LEGAL ASSISTANT Pulse 97 04/10/2018 2:45 PM BANKRUPTCY LEGAL ASSISTANT Temperature - - Respiratory Rate - - Oxygen Saturation - - Inhaled Oxygen Concentration - - Weight 110.7 kg (244 lb) 04/10/2018 2:45 PM BANKRUPTCY LEGAL ASSISTANT Height 182.9 cm (6') 04/10/2018 2:45 PM BANKRUPTCY LEGAL ASSISTANT Body Mass Index 33.09 04/10/2018 2:45 PM BANKRUPTCY LEGAL ASSISTANT documented in this encounter Progress Notes * Jesus Garcia MD - 04/10/2018 2:45 PM CSTAssociated Order(s): LARGE JOINT ARTHROCENTESIS Post-Procedure Diagnose(s): Primary osteoarthritis of right knee NEW PATIENT VISIT Subjective CHIEF COMPLAINT He had concerns including Pain of the Right Knee. HISTORY OF PRESENT ILLNESS Mr. Rivera presents today with complaints of right knee pain for 6 years, progressing over the last 4months with no mechanism of injury. He does have intermittent swelling, denies numbness and tingling. He received Synvisc injections 7 years ago, he has tried a knee brace and Aleve. The pain is sharp, aching, moderate, continuous. Stairs and kneeling make the pain worse, rest makes the pain better. Pain Assessment Pain Score: 5 - Moderate pain Pain Descriptors: Aching, Sharp Pain Frequency: Constant/continuous Aggravating Factors: Stairs (kneeling) Result of Injury: (broken knee cap) Pain Interventions: (massage/injections/braces) PAST MEDCIAL HISTORY He has a past [...] REVIEW OF SYSTEMS Review of Systems Constitutional: Negative. Negative for activity change, appetite change, chills and fever. HENT: Negative. Negative for congestion, dental problem, ear pain, hearing loss and voice change. Eyes: Negative. Negative for pain and visual disturbance. Respiratory: Negative. Negative for apnea, cough, chest tightness and shortness of breath. Cardiovascular: Negative. Negative for chest pain, palpitations and leg swelling. Gastrointestinal: Negative. Negative for blood in stool, constipation, diarrhea, nausea and vomiting. Endocrine: Negative for cold intolerance and heat intolerance. Genitourinary: Negative. Negative for difficulty urinating and hematuria. Musculoskeletal: Negative. Skin: Negative. Negative for color change, rash and wound. Allergic/Immunologic: Negative for environmental allergies. Neurological: Negative. Negative for dizziness, syncope, numbness and headaches. Hematological: Negative for adenopathy. Does not bruise/bleed easily. Psychiatric/Behavioral: Negative. Negative for confusion. The patient is not nervous/anxious and isnot hyperactive. All other systems reviewed and are negative. Objective PHYSICAL EXAM BP 137/92 Pulse 97 Ht 182.9 cm (6') Wt 110.7 kg (244 lb) BMI 33.09 kg/m?? Right knee Inspection The patient has normal inspection of the right knee. Erythema: absent Swelling: absent Skin temperature: normal Alignment: neutral Gait: normal Palpation The patient has normal palpation of the right knee. Tenderness: absent. Patellar tracking: normal Crepitus: positive Range of motion The patient has normal range of motion of the right knee. Stability The patient has normal AP and ML stability of the right knee. AP stability: stable ML stability: stable Varus stress at 0 degrees: stable Valgus stress at 0 degrees: stable Varus stress at 30 degrees: stable Valgus stress at 30 degrees: stable Pivot shift: negative Yeny: negative Anterior drawer: negative Strength Hip abductor: 4/5 Neurovascular The patient has normal vascular on the right side of their body. The patient has normal sensation on the right side of their body. Special tests Patience: medial negative lateral positive Patellar apprehension: negative Posterior sag: negative Left knee Inspection The patient has normal inspection of the left knee. Erythema: absent Swelling: absent Effusion: absent Skin temperature: normal Alignment: neutral Gait: normal Palpation The patient has normal palpation of the left knee. Tenderness: absent. Patellar tracking: normal Range of motion The patient has normal range of motion of the left knee. Stability The patient has normal AP and ML stabiltiy of the left knee. AP stability: stable ML stability: stable Varus stress at 0 degrees: stable Valgus stress at 0 degrees: stable Varus stress at 30 degrees: stable Valgus stress at 30 degrees: stable Pivot shift: negative Yeny: negative Anterior drawer: negative Strength Hip abductor: 4/5 Neurovascular The patient has normal vascular on the left side of their body. The patient has normal sensation on the left side of their body. Special tests Patience: medial negative lateral negative Patellar apprehension: negative Posterior sag: negative REVIEW OF X-RAYS/STUDIES/LABS XR Knee Right 4+ View Upon my review of the images, negative for fracture or dislocation, moderate tricompartmental degenerative changes bilaterally with chondrocalcinosis of the medial and lateral compartments on the right. Tilted patellas bilaterally. XR Pelvis 1 or 2 Views Upon my review of the images, negative for fracture or dislocation. Moderate degenerative changes of the right hip joint, mild degenerative changes of the left hip joint. Assessment/Plan Timmy was seen today for pain. Diagnoses and all orders for this visit: Primary osteoarthritis of right knee - XR Knee Right 4+ View - Cancel: XR Pelvis 1 or 2 Views - XR Pelvis 1 or 2 Views Chondrocalcinosis of right knee Large Joint (Hip, Knee, Shoulder) Injection Date/Time: 04/10/2018 3:37 PM Performed by: JESUS GARCIA Authorized by: JESUS GARCIA Large Joint Injection/Aspiration: Consent Given by: Patient Site marked: the procedure site was marked Verbal consent obtained: Yes Supporting Documentation: Indications: Pain Procedure Details: Location: Knee Site: R knee Prep: patient was prepped and draped in usual sterile fashion Needle Size: 22 G Approach: Superior lateral Ultrasound guided: No Medications: 3 mL lidocaine 20 mg/mL (2 %); 80 mg methylPREDNISolone acetate 80 mg/mL Patient tolerance: Patient tolerated the procedure well with no immediate complications PLAN Reviewed x-ray images with ani Cook for 20 min every 2-3 hours for the next 24-48 hours. Given a home exercise program by Demetrius Augustin, CSCS. Continue [id number] medication as needed for pain. We will get approval for viscosupplementation and call him once we have approval to receive this injection. He is in full understanding and in agreement with the plan, and all of his questions were answered. Charli Jones, SABRINA Garcia MD RUPTCY LEGAL ASSISTANT documented in this encounter Plan of Treatment Not on file documented as of this encounter Procedures Procedure Name Priority Date/Time Associated Diagnosis Comments XR PELVIS 1 OR 2 VIEWS Schedule Routine, Read Routine (OP Routine) 04/10/2018 2:45 PM BANKRUPTCY LEGAL ASSISTANT Primary osteoarthritis of right knee MI ARTHROCENTESIS ASPIR&/INJ MAJOR JT/BURSA W/O US Routine 04/10/2018 2:45 PM BANKRUPTCY LEGAL ASSISTANT Primary osteoarthritis of right knee XR KNEE RIGHT 4 OR MORE VIEWS Schedule Routine, Read Routine (OP Routine) 04/10/2018 2:44 PM BANKRUPTCY LEGAL ASSISTANT Primary osteoarthritis of right knee documented in this encounter Results * XR Pelvis 1 or 2 Views (04/10/2018 2:45 PM BANKRUPTCY LEGAL ASSISTANT) Anatomical Region Laterality Modality Body, Pelvis N/A Radiographic Mily ging Narrative 04/10/2018 3:35 PM BANKRUPTCY LEGAL ASSISTANT Upon my review of the images, negative for fracture or dislocation. ?? Moderate degenerative changes of the right hip joint, mild degenerative changes of the left hip joint. us Jesus Garcia MD IMG XR PROCEDURES Margarita l Result * MI ARTHROCENTESIS ASPIR&/INJ MAJOR JT/BURSA W/O US (04/10/2018 2:45 PM BANKRUPTCY LEGAL ASSISTANT) Narrative Jesus Garcia MD - 04/10/2018 2:45 PM BANKRUPTCY LEGAL ASSISTANT Jesus Garcia MD ? 04/10/2018 ??3:42 PM Large Joint (Hip, Knee, Shoulder) Injection Date/Time: 04/10/2018 3:37 PM Performed by: JESUS GARCIA Authorized by: JESUS GARCIA Large Joint Injection/Aspiration: ??Consent Given by: ??Patient ??Site marked: the procedure site was marked ?Verbal consent obtained: Yes ?? Supporting Documentation: ??Indications: ??Pain Procedure Details: ??Location: ??Knee ??Site: ??R knee ??Prep: patient was prepped and draped in usual sterile fashion ?Needle Size: ??22 G ??Approach: ??Superior lateral ??Ultrasound guided: No ?Medications: ??3 mL lidocaine 20 mg/mL (2 %); 80 mg methylPREDNISolone acetate 80 mg/mL ??Patient tolerance: ??Patient tolerated the procedure well with no immediate complications Jesus Garcia MD IN CLINIC/BEDSIDE ARSENKatharina JASMINEARIC Final Result * XR Knee Right 4+ View (04/10/2018 2:44 PM BANKRUPTCY LEGAL ASSISTANT) Anatomical Region Laterality Modality Lower Extremities, Knee Right Radiogra [facility] Narrative 04/10/2018 3:36 PM BANKRUPTCY LEGAL ASSISTANT Upon my review of the images, negative for fracture or dislocation, moderate tricompartmental degenerative changes bilaterally with chondrocalcinosis of the medial and lateral compartments on the right. ?? Tilted patellas bilaterally. Jesus Garcia MD IMG XR PROCEDURES Margarita l Result documented in this encounter Visit Diagnoses Diagnosis Primary osteoarthritis of right knee- Primary Chondrocalcinosis of right knee documented in this encounter Administered Medications Inactive Administered Medications - up to 3 most recent administrations Medication Order MAR Action Action Date Dose Rate Site lidocaine (XYLOCAINE) 20 mg/mL (2 %) injection 3 mL 3 mL, One-Time Injection, Starting on Tue04/10/18 at 1537, For 1 dose, Indications: Administration of Local AnesthesiaIndications:Administratio n of Local Anesthesia Given 04/10/2018 3:37 PM BANKRUPTCY LEGAL ASSISTANT 3 mL methylPREDNISolone acetate (DEPO-medrol) injection 80 mg 80 mg, intra-articular, One-Time Injection, Starting on Tue04/10/18 at 1537, For 1 doseIndications:Primary osteoarthritis of right knee Given 04/10/2018 3:37 PM BANKRUPTCY LEGAL ASSISTANT 80 mg documented in this encounter Historical Medications * This list may reflect changes made after this encounter. LORATADINE-D 10-240 mg per 24 hr tablet daily as needed 01/20/2018 benazepril (LOTENSIN) 10 mg tablet daily 01/22/2018 phentermine (ADIPEX-P) 37.5 mg tablet TK 1 T PO QAM TUESDAY THRU TUESDAY 0 02/27/2018 06/20/2018 added in this encounter Care Teams Net Architect Relationship Specialty Start Date End Date Referring, Unknown, PCP - General Pediatrics 04/10/18 02/28/22 documented as of this encounter
--- OUTSIDE RECORDS SUMMARY | 2024-03-24 09:37 | XMS_ITS | Encounter Summary ---
Author Organization [facility] Address [address] [place] [address] Care Team Providers Care Guard Range Name Role Phone Referring, Unknown MD Primary Care Provider Unav ailable Encounter Details Date Type Department Care Team (Late st Contact Info) Description 06/27/2018 12:44 PM CDT - 06/27/2018 1:54 PM CDT Surgery [facility] [address] [place] [address] Serjio Pressley MD [address] [place] [address] [address] LEI [address] [address] Right knee arthroscopy, with menisecectomy (medial and lateral) including any meniscal shavings including debridement/shaving articular cartilage Surgery Details Date/Time Status Location OR Service Patient Class Case Class Case Type Trauma Case? 06/27/2018 12:44 PM Posted [facility] OR Orthopaedics Outpatient Elective Panel 1 Procedure [facility]RB Anes Op Region Wound Class Comments Right knee arthroscopy, with menisecectomy (medial and lateral) including any meniscal shavings including debridement/shaving articular cartilage Right General Knee Class I - Clean Surgeon Surgeon Role Service Panel Serjio Pressley MD Primary Orthopaedics 1 Special Needs arthroscopy equipment and ezy wrap documented in this encounter Social History Tobacco Use Types Packs/Day Years Used Date Smoking Tobacco: Never Smokeless Tobacco: Never Alcohol Use Standard Drinks/Week Comments No 0 (1 standard drink = 0.6 oz pur e alcohol) Sex and Gender Information Value Date Recorded Sex Assigned at Not on file Legal Sex Male 9:18 AM ORTHO ASSISTANT Gender Identity Not on file Sexual Orientation Not on file documented as of this encounter Last Filed Vital Signs Vital Sign Reading Time Taken Comments Blood Pressure 129/85 06/27/2018 11:11 AM CDT Pulse 88 06/27/2018 11:11 AM CDT Temperature 36.8 ??C (98.2 ??F) 06/27/2018 11:11 AM C DT Respiratory Rate 18 06/27/2018 11:11 AM CDT Oxygen Saturation 98% 06/27/2018 11:11 AM CDT Inhaled Oxygen Concentration - - Weight 113.2 kg (249 lb 9 oz) 06/27/2018 11:11 A M CDT Height 182.9 cm (6') 06/27/2018 11:11 AM CDT Body Mass Index 33.85 06/27/2018 11:11 AM CDT documented in this encounter Discharge Instructions * Attachments The following attachments cannot be sent through Care Everywhere. * General Anesthesia (Discharge Care) (Samoan) * Hydrocodone/Acetaminophen (By mouth) (Samoan) * Ascorbic Acid (Vitamin C) (By mouth) (Samoan) * Aspirin (By mouth) (Samoan) documented in this encounter Medications at Time [...] replacement. He is here discuss surgical intervention. Waistline Joiner Overlock completed by using Access Media 3*Modal Fluency Direct speaking software, therefore, frame gate mortiser operator variances may occur. Pain Assessment Pain Assessment: [...] Operation in detail: Operative Note Attending Surgeon: Serjio Pressley MD Surgical Assistants: Surgeon(s) and Role: [...] you and your doctor have chosen [facility] for your surgery. We hope that the [...] water, Benazepril. ?? Use no make-up, nail yemeni, lotions, oils or powders on your skin. [...] Diagnoses Diagnosis Chondrocalcinosis of right knee- Primary Chondrocalcinosis of right knee documented in this encounter Admitting Diagnoses Diagnosis [...] 11:44 AM CDT 30 mL/hr 30 mL/hr Lactated Ringer's (LR) irrigation As needed, Starting on Tue06/27/18 at 1426, Intra-Op Given 06/27/2018 2:26 PM CDT 6,000 mL Surgical Site lidocaine-EPINEPHrine (XYLOCAINE with EPI) 1 %-1:200,000 preservative free injection As needed, Starting on Tue06/27/18 at 1440, Intra-Op, Indications: Administration of Local AnesthesiaIndications:Administrat ion of Local Anesthesia Given 06/27/2018 2:40 PM CDT 17 mL Surgical Site documented in this encounter Discontinued Medications Medication [...] mL/hr, Administer over 3 Minutes, Once, On Tue06/27/18 at 1145, For 1 dose, Pre-Op, Administer within 60 minutes of incision. Use Vancomycin if allergy to Ancef or history of MRSA. Follow [facility] antibiotic protocol., Indications: Prophylaxis, Surgical 1410 (Given - Provid er: Barbi Alanis CRNA) HYDROcodone-acetaminophen (NORCO) 5-325 mg per tablet 1 tablet (COMPLETED) 1 tablet, oral, Once, On Tue06/27/18 at 1615, For 1 dose, Indications: Pain 1553 (Given - Provid er: Cammy Dixon RN) Continuous Medication Order 06/25/2018 06/26/2018 06/27/2018 Lactated Ringer's (LR) infusion 30 mL/hr, intravenous, Continuous, Starting on Tue06/27/18 at 1145, Pre-Op 1144 (New Bag - Prov ider: Cammy Dixon RN)1354 (Rate/Dose Verify - Provider: Barbi Alanis CRNA) Lactated Ringer's (LR) infusion 125 mL/hr, intravenous, Continuous, Starting on Tue06/27/18 at 1545, Phase I 1545 (Due) PRN [...] 06/27/2018 Lactated Ringer's (LR) infusion 1 9 meperidine (DEMEROL) preserv ative free injection 12.5 mg 1 06/27/2018 naloxone (NARCAN) 0.4 mg/mL injection 0.04-0.4 mg 1 06/27/2018 ondansetron (ZOFRAN) 4 mg/2 mL injection - ADS Override Pull 1 06/27/2018 ondansetron (ZOFRAN) injection 4 mg 1 06/27 prochlorperazine (COMPAZINE) injection 10 mg 1 06/27/2018 sodium chloride 0.9% flush 0.5-20 mL 1 06/03 Diet Count Last Ordered Date First Orde red Date ADULT DISCHARGE DIET 1 06/27/2018 Nursing Count Last Ordered Date First Orde red Date DISCHARGE ACTIVITY 4 06/27/2018 DISCHARGE CALL PROVIDER 3 06/27/2018 DISCHARGE DRESSING 1 06/27/2018 Admission Count Last Ordered Date First Orde red Date ASSIGN PATIENT STATUS 1 06/27/2018 documented in this encounter Care Teams Guard Range Relationship Specialty Start Date End Date Referring, Unknown, PCP - General Pediatrics 04/10/18 02/28/22 documented as of this encounter
--- OUTSIDE RECORDS SUMMARY | 2024-03-24 09:37 | XMS_ITS | Encounter Summary ---
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
--- OUTSIDE RECORDS SUMMARY | 2024-03-24 09:37 | XMS_ITS | CONTINUITY OF CARE DOCUMENT ---
Author Name dyllan mijares Address Unknown Organization [facility] Address [address] [address] [place] [address] Phone [phone] Care Team Providers Care Used Car Salesperson Name Role Phone Luis MCMAHAN, Deng Unavailable [phone] GOPAL MCMAHAN, DIAMANTE F Unavailable GOPAL MCMAHAN, DIAMANTE F Unavailable PROBLEMS Condition Status Date Provider Notes Cardiovascular screening active Megan Cordon INSURANCE PROVIDERS Payer name Policy type / Coverage type Gay red libertarian ID [facility] [id number], Coronary Calcium Score HISTORY OF PROCEDURES Procedure Date Procedure Name Provider Procedure Notes S tatus CT- Coronary CA score Deng Smith MD completed
--- OUTSIDE RECORDS SUMMARY | 2024-03-24 09:37 | XMS_ITS | Encounter Summary ---
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
--- OUTSIDE RECORDS SUMMARY | 2024-03-24 09:37 | XMS_ITS | Encounter Summary ---
Author Organization [facility] Address [address] [place] [address] Care Team Providers Care Social Work Case Manager Name Role Phone Referring, Unknown MD Primary Care Provider Unav ailable Encounter Details Date Type Department Care Team (Late st Contact Info) Description 06/16/2018 Telephone [facility] Orthopedics and Sports Medicine [address] [facility] [address] [place] [address] Serjio Pressley MD [address] [place] [address] [address] [place], [place] [id number] Social History Tobacco Use Types Packs/Day Years Used Date Smoking Tobacco: Unknown Smokeless Tobacco: Never Alcohol Use Standard Drinks/Week Comments No 0 (1 standard drink = 0.6 oz pur e alcohol) Sex and Gender Information Value Date Recorded Sex Assigned at Not on file 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 I tried returning call and left message documented in this encounter Plan of Treatment Not on file documented as of this encounter Visit Diagnoses Not on filedocumented in this encounter Care Teams Social Work Case Manager Relationship Specialty Start Date End Date Referring, Unknown, PCP - General Pediatrics 04/10/18 02/28/22 documented as of this encounter
--- OUTSIDE RECORDS SUMMARY | 2024-03-24 09:37 | XMS_ITS | Encounter Summary ---
Author Organization [facility] Address [address] [place] [address] Care Team Providers Care Manual Qa Tester Name Role Phone Referring, Unknown MD Primary Care Provider Unav ailable Reason for Visit * Reason Onset Date Comments Medical Question 06/02/2018 Encounter Details Date Type Department Care Team (Late st Contact Info) Description 06/02/2018 Telephone [facility] Orthopedics and Sports Medicine [address] [place] [address] Leidy Carrion MD [address] [place], [place] [id number] Medical Question Social History Tobacco Use Types Packs/Day Years Used Date Smoking Tobacco: Unknown Smokeless Tobacco: Never Alcohol Use Standard Drinks/Week Comments No 0 (1 standard drink = 0.6 oz pur e alcohol) Sex and Gender Information Value Date Recorded Sex Assigned at Not on file Legal Sex Male 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 Pressley as recommended. LMOMTCB. GEMENT DEVELOPER * Telephone Encounter - Serjio Pressley MD - 06/04/2018 8:48 AM MANAGEMENT DEVELOPER No. Just put him on my schedule. Thanks! GEMENT DEVELOPER * Telephone Encounter - Sari Seymour - 06/02/2018 2:51 PM CST Patient saw Dr. Carrion in April. He states the steroid injection did not help. He said he never heard back about the visco injections but he has tried Synvisc before and it only helped a very short period of time. He would like to discuss with Dr. Pressley about a partial knee replacement. Does he need an MRI or PT first? Please advise. GEMENT DEVELOPER documented in this encounter Plan of Treatment Not on file documented as of this encounter Visit Diagnoses Not on filedocumented in this encounter Care Teams Manual Qa Tester Relationship Specialty Start Date End Date Referring, Unknown, PCP - General Pediatrics 04/10/18 02/28/22 documented as of this encounter
--- OUTSIDE RECORDS SUMMARY | 2024-03-24 09:38 | XMS_ITS | Continuity of Care Document ---
Author Organization [facility] Address [address] [place] [address] Phone Care Team Providers Care Inspecting Machine Adjuster Name Role Phone Omari Ibrahim MD Unavailable Unavailable Allergies, Adverse Reactions, Alerts Substance Reaction Status Criticality No Known Drug Allergies Active No I nformation Medications Medication Instructions Dosage Effective Dates (start - stop) Status Comments No Drug Therapy Prescribed Procedures Procedure Date X-ray exam shoulder minimum 2 views Independent Medical Examination VINITA Prolonged serv, w/o contact, 1st hr Advance Directives Directive Yes / No Effective Date File Name No Information Encounters Encounter Description Practice Location Reason(s) For Visit Diagnoses Date Provider Providers Copied on Encounter [facility], [address] [place] [address], [address] [place] [address], tel:[phone] No Information 4 Alexandria Salcido. [address] [place] [address], [address], [id number] , . [phone] Independent Medical Examination [facility], [address] [place] [address], [id number], tel:[phone] [facility] 4 Alexandria Salcido. [address] [place] [address], [address], [id number] , . tel: [phone] Family History Family Member Type Diagnosis Age At Onset Father Problem (finding) Cardiovascular disease Father Problem (finding) hypertension Immunizations Vaccine Date Status Comments Flu (split) (3 yrs or older) not administered Note: Invalid docume nted admin date was . ; Source: Other Provider Payers Payer name Insurance type Covered alliance party ID Gabriele Staples (s) [id number] Social History Type Description Quantity Date Captured Comments Sex Male Smoking Status No Information Chief Complaint And Reason For Visit No Information Reason For Referral Reason For Referral No Information Plan Of Treatment Date Type Action Status Referral Ordered: X-ray exam shoulder minimum 2 views LT ordered History Of Present Illness Encounter Date Complaint History Of Prese nt Illness No Information Functional Status Date Functional Assessmen t No Information Medications Administered Medication Instructions Dosage Effective Dates (start - stop) Status Comments No Drug Therapy Prescribed Instructions Date Instruction Additional Infor mation No Information Assessments Type Assessment Date No Information Patient Care Teams Name Effective Dates (start - stop) Status Members No Information
--- OUTSIDE RECORDS SUMMARY | 2024-03-24 09:38 | XMS_ITS | Continuity of Care Document ---
Author Organization [facility] Address [address] [place] [address] [address] [place] [address] Phone Care Team Providers Care Business Representative Name Role Phone Remigio Kinney Unavailable Unavailable Procedures Procedure Date Office/outpatient Visit, Est Remove Foreign Body From Eye Advance Directives Directive Yes / No Effective Date File Name No Information Encounters Encounter Description Practice Location Reason(s) For Visit Diagnoses Date Provider Providers Copied on Encounter Office/outpat ient Visit, Est [facility], [address] [place] [address] [address], [place], [place], [id number], tel:[phone] [facility] [place] No Information [phone] Doisy Remigio. [facility] [place] , [address], [place], [place], [facility], [place]. tel:[phone] [facility], [address] [place] [address] [address], [place], [place], [id number], tel:[phone] [facility] [place] No Information [phone] 0 Randle OD Timmy. [address] [facility] [address] , [address], [place], [address], [place]. tel:[phone] Family History Family Member Type Diagnosis Age At Onset No Information Payers Payer name Insurance type Covered alliance party ID Authoriza tion(s) No Information Social History Type Description Quantity Date Captured Comments Sex Male Smoking Status No Information Chief Complaint And Reason For Visit No Information Reason For Referral Reason For Referral No Information History Of Present Illness Encounter Date Complaint History Of Prese nt Illness No Information Functional Status Date Functional Assessmen t No Information Instructions Date Instruction Additional Infor mation No Information Assessments Type Assessment Date No Information Patient Care Teams Name Effective Dates (start - stop) Status Members No Information
== END 2024-03-19 12:20 | disposition home or self-care (01) ==
PROVIDERS: PCP Family Medicine; Visit Provider Anesthesiology Pain Medicine
PROC: (CPT 64628; principal; 2024-03-19 08:30)
DX: M54.51 Vertebrogenic low back pain (principal); M47.817 Spondylosis without myelopathy or radiculopathy, lumbosacral region; G89.29 Other chronic pain; I10 Essential (primary) hypertension; G47.33 Obstructive sleep apnea (adult) (pediatric); Z98.84 Bariatric surgery status; E66.9 Obesity, unspecified; Z68.31 Body mass index [BMI] 31.0-31.9, adult
CPT/HCPCS: 64628; 64629; 99199; A9270; C1889; J0690; J1100; J2003; J2250; J2270; J2405; J2704; J3010; J7120

== ENCOUNTER 2025-02-01 10:15 | Outpatient (CLI) | payer BC, SELFPAY ==
--- NOTE | ~2025-02-01 | XR_ITS ---
XR lumbar spine 2-3V Indication: M54.50 - Low back pain, unspecified Comparison: None Findings: Grade 1 retrolisthesis of L2 on L3, no fracture is identified. Moderate loss of disc height at L1-2, L2-3 and L5-S1. Soft tissues unremarkable Impression: No acute abnormality. Reviewed, dictated and finalized at location P. Impression: No acute abnormality.
--- OUTSIDE RECORDS SUMMARY | 2025-02-01 10:45 | XMS_ITS | Clinical Summary ---
Author Organization [facility] Address [address] [place] [address] Care Team Providers Care Dinkey Motor Operator Name Role Phone Rupert Monique MD Primary Care Provider [phone] Allergies No known active allergies Medications benazepril [...] (06/19/2018): Added automatically from request for surgery [id number] Surgical History Surgery Date Site/Laterality Comments SHOULDER SURGERY KNEE SURGERY Right FACIAL COSMETIC SURGERY broken bone in face Medical History Medical History Date Comments Hx Other Medical Left shoulder s urgery; Comments: APO 11/09/2013 - Hypertension Sleep apnea CPAP it works f or me; last sleep study 2010 Family History Medical [...] on file Legal Sex Male 9:18 AM SUPERVISORY FORESTER Gender Identity Not on file Sexual Orientation Not on file Obstetrics History Last Filed Vital Signs Vital Sign Reading Time Taken Comments Blood Pressure 122/73 03/01/2022 8:39 AM SUPERVISORY FORESTER Pulse 75 03/01/2022 8:39 AM SUPERVISORY FORESTER Temperature 36.6 C (97.8 F) 06/27/2018 4:21 PM CDT Respiratory Rate 18 06/27/2018 4:21 PM CDT Oxygen Saturation 97% 06/27/2018 4:21 PM CDT Inhaled Oxygen Concentration - - Weight 99 kg (218 lb 3.2 oz) 03/01/2022 8:39 AM SUPERVISORY FORESTER Height 182.9 cm (6') 03/01/2022 8:39 AM SUPERVISORY FORESTER Body Mass Index 29.59 03/01/2022 8:39 AM SUPERVISORY FORESTER Plan of Treatment Health Maintenance Due Date Last Done Comments Colon Cancer Screening-Colonoscopy 1970 Depression Screening 1970 Hepatitis C Screening 1970 Prostate Cancer Screening-PSA 1970 DTaP/Tdap/Td Vaccine (1 - Tdap) 1981 Hepatitis B Screening 1988 Regular Well Visit/Exam 18-64 1988 Zoster Vaccine (1 of 2) 2020 Influenza Vaccine (#1) 2024 Pneumococcal vaccine <65 Aged Out No longer eligible based on patient's age to complete this topic Insurance [employer] OOS Care Teams Dinkey Motor Operator Relationship Specialty Start Date End Date Rupert Monique MD PCP - General Family Medicine 03/01/22
== END 2025-02-01 10:16 | disposition home or self-care (01) ==
PROVIDERS: PCP Family Medicine; Visit Provider Physician Assistant Medical
DX: M43.16 Spondylolisthesis, lumbar region (principal); R29.890 Loss of height
CPT/HCPCS: 72100

== ENCOUNTER 2025-03-11 14:17 | Outpatient (CLI) | payer BC, SELFPAY ==
--- NOTE | ~2025-03-11 | XR_ITS ---
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 Findings: No acute fracture or malalignment. No significant degenerative changes. Soft tissues unremarkable. Impression: No acute fracture or malalignment. Reviewed, dictated and finalized at location P. TRICAL HARDWARE ENGINEER Impression: No acute fracture or malalignment.
== END 2025-03-11 14:18 | disposition home or self-care (01) ==
PROVIDERS: PCP Family Medicine; Visit Provider Nurse Practitioner Adult Health
DX: M25.551 Pain in right hip (principal)
CPT/HCPCS: 73502